=== PATIENT | female | born 1995 | race Caucasian/White ===

== ENCOUNTER 2020-11-04 22:41 | Emergency (ER) | payer OTHER, SELFPAY ==
--- NOTE | 2020-11-04 | ECG_ITS ---
Test Reason : OVERDOSED Blood Pressure : / mmHG Vent. Rate : 080 BPM Atrial Rate : 080 BPM P-R Int : 178 ms QRS Dur : 086 ms QT Int : 390 ms P-R-T Axes : 059 076 058 degrees QTc Int : 449 ms Normal sinus rhythm Normal ECG When compared to the previous EKG of No significant changes seen Referred By: Venkat Oshea Electronically Signed By:Nicolas Prabhakar
[2020-11-04 22:59] VITALS: BP 122/80; BP 132/84; PULSE 78; PULSE 85; RESP 18; TEMP 36.7; O2SAT 100; O2SAT 98; BMI 27.3
[2020-11-05] VITALS: BP 108/57; PULSE 92; RESP 18; TEMP 36.6
--- NOTE | 2020-11-05 00:17 | ED.GENADULT ---
HPI - General Adult General Chief complaint: General Medical Stated complaint: OD NAUSEA VOMITING Time Seen by Provider: 11/04/20 23:53 Source: patient Mode of arrival: ambulatory Limitations: no limitations History of Present Illness HPI narrative: Patient presents ED for accidental overdose of clonazepam. Patient states she usually takes 2 mg of clonazepam twice a day. Patient states she took 1 pill of clonazepam in the morning and then later she took 3 clonazepam because she was anxious. Patient states she also forgot she had taking 1 clonazepam earlier in the day. Patient states she was not trying to kill herself and it was accidental. Patient denies being depressed, suicidal, or homicidal. Patient states he usually takes 4 mg of clonazepam per day. Patient denies taking any other pills or drugs. Related Data Allergies Allergy/AdvReac Type Severity Reaction Status Date / Time escitalopram [From LEXAPRO] Allergy Unknown hives Verified 11/05/20 00:59 lorazepam Allergy Unknown Unknown Verified 11/05/20 00:59 Review of Systems Review of Systems: Yes all other systems are reviewed and are negative Constitutional: Constitutional: Reports as per HPI and Reports no additional constitutional complaints Eyes: Eyes: Reports as per HPI and Reports no additional eye complaints ENT: Reports system reviewed and no additional complaints, except as documented and Reports as per HPI Cardiovascular: Cardiovascular: Reports as per HPI and Reports no additional cardiovascular complaints Respiratory: Respiratory: Reports as per HPI and Reports no additional respiratory complaints Gastrointestinal: Gastrointestinal: Reports as per HPI and Reports no additional gastrointestinal complaints Genitourinary: Genitourinary: Reports no additional female genitourinary complaints and Reports as per HPI Musculoskeletal: Musculoskeletal: Reports no additional musculoskeletal complaints and Reports as per HPI Neurologic: Reports system reviewed and no additional complaints, except as documented and Reports as per HPI Psychiatric: Psychiatric: Reports no additional psychiatric complaints and Reports as per HPI [facility] Past Medical History Medical History ADD (attention deficit disorder) Anxiety Depression Social History Social History Alcohol intake: never Smoking Status: Unknown if ever smoked Use of substances other than those prescribed or required for medical reasons: No Advance Directives: No Advance Directives Information Provided: No Physical Exam Vital Signs: Vital Signs: Last Vital Signs Temp 97.7 F 11/05/20 02:00 Pulse 76 11/05/20 02:00 Resp 18 11/05/20 02:00 BP 110/61 11/05/20 02:00 Pulse Ox 98 11/05/20 02:00 Body Mass Index 27.3 Const: General: cooperative, healthy appearing, comfortable, no acute distress, well developed, alert, awake and Physically active Orientation/consciousness: patient oriented x3 HENMT: Head: Yes normal to inspection and Yes No palpable skull fracture present Eyes: General: appearance normal, both eyes and all related structures Neck: Neck: Yes normal visual inspection, Yes full ROM, Yes no lymphadenopathy, Yes no meningeal signs, Yes trachea midline, Yes supple and No tender Chest: Chest palpation & inspection: normal inspection of the chest and normal palpation of entire chest wall Resp: Effort & Inspection: normal respiratory effort and able to speak in complete sentences Auscultation: clear to auscultation bilaterally Cardio: Jugular venous distension: no JVD Heart sounds: S1 normal heart sound present and S2 normal heart sound present GI: Inspection: Yes normal to inspection Palpation (GI): Soft to palpation, not firm, nontender, no guarding and not rigid : General: No CVA tenderness and Yes no CVA tenderness Back/Spine/Pelvis: Back: no CVA tenderness, No CVA tenderness and No back tenderness Skin: General skin exam: no rashes or lesions noted and elasticity normal Neuro: General: patient oriented x3, no meningeal signs and CN's II-XI intact bilaterally Cranial nerves: Yes CN's II-XII intact bilaterally Extrem: General: Yes normal to inspection and Yes full ROM Psych: Appearance: grossly normal, well kempt and not disheveled Course Course Course Narrative: Case discussed with DR. Masters. Patient only took 2 extra pills on top of her her usual 2 pills per day. Patient is alert oriented x3. Overdose was accidental and not intentional. Labs, EKG, and poison Control not indicated. Patient already has a high tolerance for benzos. Case discussed with Dr. Masters who agrees no labs, EKG, or poison control is indicated. He recommend observing Patient in the ED. Reevaluation(s) Reevaluation #1: Patient was observed in the ED for 3 hours. Patient vital signs stable. Patient is alert oriented x3 with normal gait. Patient's family member will come and pick her up. Patient states she will follow-up with her therapist. No indication for behavior [facility] crisis evaluation Time: 02:06 Medical Decision Making MDM Narrative Medical decision making narrative: Anxiety. Accidental overdose Discharge Plan Discharge Clinical Impression: Anxiety, Accidental overdose Patient Disposition: Home, Self-Care Instructions: Anxiety (ED), Adult Overdose (ED), Benzodiazepine Overdose (ED) Additional Instructions: Return to the ED immediately for any shortness of breath, dizziness, weakness, chest pain, or any other concerning symptoms. Please follow-up with your PCP/therapist. Interventions: ED Discharge Assessment Last Done: 11/05/20 02:23 Discharge Date/Time: 11/05/20 02:23 Print Language: Australian
[2020-11-05 02:00] VITALS: BP 110/61; PULSE 76; RESP 18; TEMP 36.5; O2SAT 98
== END 2020-11-05 02:23 | disposition home or self-care (01) ==
LOC: HO.ED 11-05 02:16
PROVIDERS: Emergency Provider Emergency Medicine Emergency Medical Services
DX: T42.4X1A Poisoning by benzodiazepines, accidental (unintentional), initial encounter (principal); F33.1 Major depressive disorder, recurrent, moderate; F98.8 Other specified behavioral and emotional disorders with onset usually occurring in childhood and adolescence; R11.2 Nausea with vomiting, unspecified; Y92.009 Unspecified place in unspecified non-institutional (private) residence as the place of occurrence of the external cause; Z79.899 Other long term (current) drug therapy
CPT/HCPCS: 93005; 99283; 99284

== ENCOUNTER 2021-04-07 09:46 | Outpatient (REF) | payer OTHER, SELFPAY ==
[2021-04-07 11:09] LABS: Hematocrit 38.4 % (37-47); Hemoglobin 12.4 g/dl (12.0-16.0); Mean Corpuscular HGB Conc 32.3 g/dl (31.0-35.0); Mean Corpuscular Hemoglobin 26.5 pg (27.0-33.0); Mean Corpuscular Volume 82.1 fL (80-98); Mean Platelet Volume 10.3 fL (9.4-12.3); Platelet Count 349 X10*3/uL (160-400); Red Blood Count 4.68 X10*6/uL (4.20-5.50); Red Cell Distribution Width 14.2 % (11.0-16.0); White Blood Count 12.5 X10*3/uL (4.8-10.8)
[2021-04-07 11:44] LABS: Thyroid Stimulating Hormone 0.97 uIU/mL (0.32-4.0)
[2021-04-08 10:18] LABS: BV Int Neg Control Negative (Negative); BV Int Pos Control Positive (Positive)
[2021-04-08 11:47] LABS: CT PCR NOT DETECTED (Not Detect.); NG PCR NOT DETECTED (Not Detect.)
== END 2021-04-07 09:47 | disposition home or self-care (01) ==
LOC: HO.LAB 09:46
PROVIDERS: Visit Provider Advanced Practice Midwife
DX: Z01.411 Encounter for gynecological examination (general) (routine) with abnormal findings (principal); N92.1 Excessive and frequent menstruation with irregular cycle; L70.9 Acne, unspecified
CPT/HCPCS: 36415; 84443; 85027; 87480; 87491; 87510; 87591; 87660; 88142

== ENCOUNTER 2021-04-27 11:01 | Outpatient (REF) | payer OTHER, SELFPAY ==
--- NOTE | ~2021-04-27 | US_ITS ---
EXAMINATION: US PELVIS CLINICAL INFORMATION: Irregular menstruation. COMPARISON: None TECHNIQUE: Ultrasound of the pelvis is performed using both transabdominal and transvaginal transducers along with Doppler. Transvaginal imaging is performed due to inadequate visualization transabdominally. FINDINGS: Uterus: The uterus is anteverted and anteflexed measuring 9.2 cm in length, 4.3 cm in AP and 4.3 cm in transverse dimension. No focal lesion seen. There are echogenic calcifications in the area of previous /scar. The calcification measures 0.5 x 0.2 x 1.6 cm and were visualized previously. There are several anechoic cysts in the cervix. The double wall endometrial thickness is 0.7 mm. The uterus is smooth in contour and has normal myometrial echogenicity. No visible fibroid. Adnexa: Both ovaries are visualized. There is normal color flow to the adnexa. There is no ovarian torsion. There is no pelvic ascites or fluid collection. Right ovary measures 4.3 x 2.7 x 2.6 cm and volume 15.8 mL. There is anechoic corpus luteal cyst measuring 1.6 x 1.5 x 1.5 cm. Left ovary measures 4.0 x 1.9 x 3.0 cm and volume 11.9 mL. Previously left ovary measured 3.9 x 3.0 x 2.1 cm. There is small amount of free fluid in the cul-de-sac. US/US pelvic and transvaginal IMPRESSION: Small nabothian cysts seen in the cervix. The uterus is unremarkable except for a few scattered calcifications in the area of /scar. Small corpus luteal cyst right ovary. Small amount of free fluid in the cul-de-sac.
== END 2021-04-27 11:02 | disposition home or self-care (01) ==
LOC: HO.US 11:01
PROVIDERS: Visit Provider Advanced Practice Midwife
DX: N92.6 Irregular menstruation, unspecified (principal)
CPT/HCPCS: 76830; 76856

== ENCOUNTER → 2021-05-11 16:20 | Outpatient (BNVA) | payer OTHER, SELFPAY | PROVIDERS: Visit Provider Advanced Practice Midwife ==

== ENCOUNTER 2021-06-03 09:18 | Emergency (ER) | payer OTHER, SELFPAY ==
--- NOTE | ~2021-06-03 | CT_ITS ---
EXAMINATION: CT ANGIOGRAM OF THE CHEST WITH AND WITHOUT CONTRAST (CT PULMONARY ANGIOGRAM FOR PE) CLINICAL INFORMATION: Reason for Exam Hemoptysis. Pneumonia Vs. PE? COMPARISON: None TECHNIQUE: Prior to contrast administration, noncontrast localization images were obtained. Subsequently, multidetector volumetric imaging was performed from the thoracic inlet to below the diaphragms following the administration of 80 mL Omnipaque 350 intravenous contrast. No contrast reaction reported Sagittal, coronal, and MIP oblique sagittal reformatted images were obtained on the CT workstation, uploaded to PACS, and reviewed. This CT examination was performed using dose optimization techniques as appropriate, variously including the following: *Automated exposure control *Adjustment of mA and/or kV according to patient size (this includes techniques or standardized protocols for targeted exams where dose is matched to indication/reason for exam; i.e. extremities or head) *Use of iterative reconstruction technique Total exam dose-length product 287 mGy-cm FINDINGS: QUALITY OF STUDY/CONTRAST BOLUS: Satisfactory. PULMONARY ARTERIES: No central or segmental pulmonary emboli. THORACIC AORTA: No aneurysm or dissection. LUNG: No focal consolidation, nodules or masses. PLEURA: No pleural effusion or pneumothorax. MEDIASTINUM: Normal heart size. No pericardial effusion. No hilar or mediastinal lymphadenopathy. No evidence of septal bowing or right heart strain. CHEST WALL/AXILLA: No axillary or internal mammary lymphadenopathy. There are bilateral augmented breasts. OSSEOUS STRUCTURES: No lytic or sclerotic process seen. UPPER ABDOMEN: Visualized liver, spleen, pancreas and bilateral adrenal glands are unremarkable. No reflux of contrast into the hepatic veins to suggest elevated right heart pressures. CT/CT angio chest PE protocol IMPRESSION: No evidence of PE. No evidence of aortic dissection. The lungs are clear. VTE: Negative.
--- NOTE | ~2021-06-03 | XR_ITS ---
EXAMINATION: XR CHEST CLINICAL INFORMATION: Pneumonia COMPARISON: Chest radiograph from 11/02/2016 TECHNIQUE: Frontal view of the chest was obtained. FINDINGS: Bilateral low lung volumes. Slight accentuation of the pulmonary vasculature. Subtle patchy radiopacity in the medial right lung base may represents atelectasis versus developing infiltrate versus accentuation of vascular markings. No pneumothorax. Trachea is midline. Cardiac mediastinal silhouette is not enlarged. No large pleural effusion. Osseous structures are intact. Soft tissues are unremarkable. XR/XR chest 1V IMPRESSION: 1. Bilateral low lung volumes. 2. Slight accentuation of the pulmonary vasculature. 3. Subtle patchy radiopacity in the medial right lung base may represents atelectasis versus developing infiltrate versus accentuation of vascular markings.
[2021-06-03 09:27] VITALS: BP 130/78; PULSE 87; O2SAT 99
[2021-06-03 09:28] VITALS: BP 128/75; PULSE 77; RESP 18; TEMP 36.6; O2SAT 99; BMI 25.7
[2021-06-03] MEDS: 0.9 % Sodium Chloride 1,000 ML 999 ML IV (09:39)
[2021-06-03 09:53] LABS: MANUAL DIFF FLAG NO
[2021-06-03 09:58] LABS: Basophils Absolute Auto 0.1 X10*3/uL (0.0-0.2); Basophils Percent Auto 0.3 % (0-2); Eosinophils Absolute Auto 0.2 X10*3/uL (0.0-0.4); Eosinophils Percent Auto 1.1 % (0-4); Hematocrit 34.8 % (37-47); Imm Gran Abs Auto 0.08 X10*3/uL (0.00-0.03); Imm Gran Pct Auto 0.5 % (0.0-0.4); Lymphocytes Absolute Auto 1.6 X10*3/uL (1.2-4.9); Lymphocytes Percent Auto 9.5 % (20-40); Mean Corpuscular HGB Conc 31.6 g/dl (31.0-35.0); Mean Corpuscular Hemoglobin 25.9 pg (27.0-33.0); Mean Corpuscular Volume 82.1 fL (80-98); Mean Platelet Volume 10.6 fL (9.4-12.3); Monocytes Absolute Auto 1.3 X10*3/uL (0.1-1.2); Monocytes Percent Auto 7.6 % (2-11); Neutrophils Absolute Auto 13.7 X10*3/uL (2.0-8.3); Platelet Count 268 X10*3/uL (160-400); Red Blood Count 4.24 X10*6/uL (4.20-5.50); Red Cell Distribution Width 13.2 % (11.0-16.0); White Blood Count 16.9 X10*3/uL (4.8-10.8)
[2021-06-03 10:17] LABS: Adenovirus PCR Not Detected (Not Detect.); Bordetella parapertussis PCR Not Detected (Not Detect.); Bordetella pertussis PCR Not Detected (Not Detect.); Chlamydia pneumoniae PCR Not Detected (Not Detect.); Coronavirus 229E PCR Not Detected (Not Detect.); Coronavirus HKU1 PCR Not Detected (Not Detect.); Coronavirus NL63 PCR Not Detected (Not Detect.); Coronavirus OC43 PCR Not Detected (Not Detect.); Human metapneumovirus PCR Not Detected (Not Detect.); Influenza A PCR Not Detected (Not Detect.); Influenza B PCR Not Detected (Not Detect.); Mycoplasma pneumoniae PCR Not Detected (Not Detect.); Parainfluenza 1 PCR Not Detected (Not Detect.); Parainfluenza 2 PCR Not Detected (Not Detect.); Parainfluenza 3 PCR Not Detected (Not Detect.); Parainfluenza 4 PCR Not Detected (Not Detect.); Rhino/Enterovirus PCR Not Detected (Not Detect.); SARS-CoV-2 PCR Not Detected (Not Detect.)
--- NOTE | 2021-06-03 10:19 | ED.GENADULT ---
HPI - General Adult General Chief complaint: General Medical Stated complaint: covid symptoms Time Seen by Provider: 06/03/21 09:32 Source: patient Mode of arrival: ambulatory Limitations: no limitations History of Present Illness HPI narrative: Patient presents to the ED for coughing, nausea, vomiting, body aches, slight blood in cough, and fever of 101.8 at home. Patient denies any dysuria, hematuria, recent trauma, headache, dizziness, or neck stiffness. Patient states she had symptoms when she went to visit her doctor but got worse after receiving the flu shot. Patient had white blood cell count [id number] and lab work done by PCP so they call in to be evaluated in the ER. Patient states she is vaccinated against COVID-19 and has no past medical history. Related Data Home Medications Medication Instructions Recorded Confirmed clonazepam 2 mg tablet (Klonopin) 2 mg PO DAILY 04/07/21 fluoxetine 20 mg capsule 20 mg PO DAILY 04/07/21 lorazepam 1 mg tablet 1 mg PO DAILY PRN 04/07/21 spironolactone 25 mg tablet 25 mg PO DAILY 04/07/21 Allergies Allergy/AdvReac Type Severity Reaction Status Date / Time escitalopram [From LEXAPRO] Allergy Unknown hives Verified 05/11/21 16:21 Review of Systems Review of Systems: Yes all other systems are reviewed and are negative Constitutional: Constitutional: Reports as per HPI, Reports no additional constitutional complaints, Reports body ache(s) and Reports fever(s) Eyes: Eyes: Reports as per HPI and Reports no additional eye complaints ENT: Reports system reviewed and no additional complaints, except as documented and Reports as per HPI Cardiovascular: Cardiovascular: Reports as per HPI and Reports no additional cardiovascular complaints Respiratory: Respiratory: Reports as per HPI, Reports no additional respiratory complaints, Reports cough, Reports hemoptysis (small) and Reports pain with cough Gastrointestinal: Gastrointestinal: Reports as per HPI, Reports no additional gastrointestinal complaints, Reports nausea and Reports vomiting Genitourinary: Genitourinary: Reports no additional female genitourinary complaints and Reports as per HPI Musculoskeletal: Musculoskeletal: Reports no additional musculoskeletal complaints and Reports as per HPI Neurologic: Reports system reviewed and no additional complaints, except as documented and Reports as per HPI Psychiatric: Psychiatric: Reports no additional psychiatric complaints and Reports as per HPI [facility] Past Medical History Medical History ADD (attention deficit disorder) Anxiety Depression Surgical History Hx of breast augmentation Hx of tubal ligation Social History Social History Alcohol intake: current Alcohol intake frequency: does not drink Patient Tobacco Use Status: Never used Tobacco Use of substances other than those prescribed or required for medical reasons: No Advance Directives: Yes Advance Directives Information Provided: Yes Advance Directives on File: No Physical Exam Vital Signs: Vital Signs: Last Vital Signs Temp 98.2 F 06/03/21 10:51 Pulse 80 06/03/21 10:51 Resp 17 06/03/21 10:51 BP 111/68 06/03/21 10:51 Pulse Ox 100 06/03/21 10:51 Body Mass Index 25.7 Const: General: cooperative, healthy appearing, comfortable, no acute distress, well developed, alert, awake and Physically active Orientation/consciousness: patient oriented x3 HENMT: Head: Yes normal to inspection, Yes No palpable skull fracture present, Yes normocephalic and Yes atraumatic Throat: Yes posterior oropharynx normal, Yes tonsils normal and Yes uvula midline Eyes: General: appearance normal, both eyes and all related structures Neck: Neck: Yes normal visual inspection, Yes full ROM, Yes no lymphadenopathy, Yes no meningeal signs, Yes trachea midline, Yes supple and No tender Chest: Chest palpation & inspection: normal inspection of the chest and normal palpation of entire chest wall Resp: Effort & Inspection: normal respiratory effort and able to speak in complete sentences Auscultation: clear to auscultation bilaterally Cardio: Jugular venous distension: no JVD Heart sounds: S1 normal heart sound present and S2 normal heart sound present GI: Inspection: Yes normal to inspection and No abdominal wall ecchymosis Palpation (GI): Soft to palpation, not firm, nontender, no guarding and not rigid : General: No CVA tenderness and Yes no CVA tenderness Back/Spine/Pelvis: Back: no CVA tenderness, No CVA tenderness and No back tenderness Skin: General skin exam: no rashes or lesions noted and elasticity normal Neuro: General: patient oriented x3, no meningeal signs and CN's II-XI intact bilaterally Cranial nerves: Yes CN's II-XII intact bilaterally Extrem: General: Yes normal to inspection and Yes full ROM Psych: Appearance: grossly normal, well kempt and not disheveled Course Course Course Narrative: Patient had labs ordered, COVID swab, chest x-ray. Reevaluation(s) Reevaluation #1: Patient Elavil and blood cell count with x-ray stating possible pneumonia. Was sent for chest CT to rule out PE versus pneumonia due to patient having hemoptysis 1 episode. Lungs are clear. Patient is not toxic appearing. Vital signs are stable. No need for lactic acid. Time: 09:47 Reevaluation #2: Upon review of labs RSV came back positive. Chest CT came back negative for pneumonia or PE. Patient educated on oral hydration and Tylenol Motrin for fever and pain relief. Time: 13:30 Medical Decision Making [facility] Narrative Medical decision making narrative: RSV Lab Data Result diagrams: 06/03/21 09:47 06/03/21 09:47 Labs: Lab Results 06/03/21 06/03/21 06/03/21 Range/Units 09:47 09:47 09:47 WBC 16.9 H (4.8-10.8) X10*3/uL RBC 4.24 (4.20-5.50) X10*6/uL Hgb 11.0 L (12.0-16.0) g/dl Hct 34.8 L (37-47) % MCV 82.1 (80-98) fL MCH 25.9 L (27.0-33.0) pg MCHC 31.6 (31.0-35.0) g/dl RDW 13.2 (11.0-16.0) % Plt Count 268 (160-400) X10*3/uL MPV 10.6 (9.4-12.3) fL Immature Gran % (Auto) 0.5 H (0.0-0.4) % Neut % (Auto) 81.0 H (45-73) % Lymph % (Auto) 9.5 L (20-40) % Marshall % (Auto) 7.6 (2-11) % Eos % (Auto) 1.1 (0-4) % Baso % (Auto) 0.3 (0-2) % Lymph # (Auto) 1.6 (1.2-4.9) X10*3/uL Marshall # (Auto) 1.3 H (0.1-1.2) X10*3/uL Eos # (Auto) 0.2 (0.0-0.4) X10*3/uL Baso # (Auto) 0.1 (0.0-0.2) X10*3/uL Abs Immat Gran (auto) 0.08 H (0.00-0.03) X10*3/uL Absolute Neuts (auto) 13.7 H (2.0-8.3) X10*3/uL Absolute Nucleated RBC 0.000 (0.0-0.012) X10*3/uL Nucleated RBC % (auto) 0.0 (0.0-0.2) /100WBC PT 11.2 (9.9-13.0) SEC INR 1.0 (0.9-1.1) APTT 24.3 (24.1-38.0) SEC Sodium 138 (135-145) mmol/L Potassium 4.0 (3.3-5.1) mmol/L Chloride 107 (96-108) mmol/L Carbon Dioxide 25 (22-29) mmol/L Anion Gap 10 L (12-20) BUN 7 L (9-16) mg/dL Creatinine 0.65 (0.5-1.4) mg/dL Estim Creat Clear Calc 117.5 Estimated GFR > 60 Random Glucose 93 (60-115) mg/dL Calcium 8.9 (8.4-10.2) mg/dL Ferritin 39 (10-122) ng/mL Total Bilirubin 0.3 (0.0-1.0) mg/dL AST 19 (5-31) U/L ALT 31 (0-31) U/L Alkaline Phosphatase 62 (39-117) U/L Lactate Dehydrogenase 151 (122-220) U/L Total Protein 6.7 (6.5-8.0) g/dL Albumin 4.0 (3.5-5.0) g/dL Lipase 17 (8-78) U/L Procalcitonin ng/mL Beta HCG, Quant < 2 mIU/mL Respiratory Panel Messer Adenovirus (Rapid PCR) (Not Detect.) B.pert (TEM-PCR) (Not Detect.) B.parapertussis DNA PCR (Not Detect.) C. pneumoniae DNA (PCR) (Not Detect.) Coronavirus (PCR) (Negative) Coronavirus OC43 (PCR) (Not Detect.) Coronavirus HKU1 (PCR) (Not Detect.) Coronavirus 229E (PCR) (Not Detect.) Coronavirus NL63 (PCR) (Not Detect.) Human Metapneumovir PCR (Not Detect.) Influenza A (RT-PCR) (Not Detect.) Influenza Type A (PCR) (Negative) Influenza B (RT-PCR) (Not Detect.) Influenza Type B (PCR) (Negative) M. pneumoniae (PCR) (Not Detect.) Parainfluenza 1 (PCR) (Not Detect.) Parainfluenza 2 (PCR) (Not Detect.) Parainfluenza 3 (PCR) (Not Detect.) Parainfluenza 4 (PCR) (Not Detect.) RSV (PCR) (Not Detect.) RSV RNA Qual (PCR) (Negative) Entero/Rhino (PCR) (Not Detect.) SARS-CoV-2 RNA (RT-PCR) (Not Detect.) 06/03/21 06/03/21 06/03/21 Range/Units 09:47 09:47 09:47 WBC (4.8-10.8) X10*3/uL RBC (4.20-5.50) X10*6/uL Hgb (12.0-16.0) g/dl Hct (37-47) % MCV (80-98) fL MCH (27.0-33.0) pg MCHC (31.0-35.0) g/dl RDW (11.0-16.0) % Plt Count (160-400) X10*3/uL MPV (9.4-12.3) fL Immature Gran % (Auto) (0.0-0.4) % Neut % (Auto) (45-73) % Lymph % (Auto) (20-40) % Marshall % (Auto) (2-11) % Eos % (Auto) (0-4) % Baso % (Auto) (0-2) % Lymph # (Auto) (1.2-4.9) X10*3/uL Marshall # (Auto) (0.1-1.2) X10*3/uL Eos # (Auto) (0.0-0.4) X10*3/uL Baso # (Auto) (0.0-0.2) X10*3/uL Abs Immat Gran (auto) (0.00-0.03) X10*3/uL Absolute Neuts (auto) (2.0-8.3) X10*3/uL Absolute Nucleated RBC (0.0-0.012) X10*3/uL Nucleated RBC % (auto) (0.0-0.2) /100WBC PT (9.9-13.0) SEC INR (0.9-1.1) APTT (24.1-38.0) SEC Sodium (135-145) mmol/L Potassium (3.3-5.1) mmol/L Chloride (96-108) mmol/L Carbon Dioxide (22-29) mmol/L Anion Gap (12-20) BUN (9-16) mg/dL Creatinine (0.5-1.4) mg/dL Estim Creat Clear Calc Estimated GFR Random Glucose (60-115) mg/dL Calcium (8.4-10.2) mg/dL Ferritin (10-122) ng/mL Total Bilirubin (0.0-1.0) mg/dL AST (5-31) U/L ALT (0-31) U/L Alkaline Phosphatase (39-117) U/L Lactate Dehydrogenase (122-220) U/L Total Protein (6.5-8.0) g/dL Albumin (3.5-5.0) g/dL Lipase (8-78) U/L Procalcitonin 0.03 ng/mL Beta HCG, Quant mIU/mL Respiratory Panel Messer See Note Adenovirus (Rapid PCR) Not Detected (Not Detect.) B.pert (TEM-PCR) Not Detected (Not Detect.) B.parapertussis DNA PCR Not Detected (Not Detect.) C. pneumoniae DNA (PCR) Not Detected (Not Detect.) Coronavirus (PCR) NEGATIVE (Negative) Coronavirus OC43 (PCR) Not Detected (Not Detect.) Coronavirus HKU1 (PCR) Not Detected (Not Detect.) Coronavirus 229E (PCR) Not Detected (Not Detect.) Coronavirus NL63 (PCR) Not Detected (Not Detect.) Human Metapneumovir PCR Not Detected (Not Detect.) Influenza A (RT-PCR) Not Detected (Not Detect.) Influenza Type A (PCR) NEGATIVE (Negative) Influenza B (RT-PCR) Not Detected (Not Detect.) Influenza Type B (PCR) NEGATIVE (Negative) M. pneumoniae (PCR) Not Detected (Not Detect.) Parainfluenza 1 (PCR) Not Detected (Not Detect.) Parainfluenza 2 (PCR) Not Detected (Not Detect.) Parainfluenza 3 (PCR) Not Detected (Not Detect.) Parainfluenza 4 (PCR) Not Detected (Not Detect.) RSV (PCR) Detected A (Not Detect.) RSV RNA Qual (PCR) NEGATIVE (Negative) Entero/Rhino (PCR) Not Detected (Not Detect.) SARS-CoV-2 RNA (RT-PCR) Not Detected (Not Detect.) Discharge Plan Discharge Clinical Impression: Respiratory syncytial virus (RSV) Patient Disposition: Home, Self-Care Instructions: Respiratory Syncytial Virus (ED) Additional Instructions: Your chest CT came back negative for blood clot or pneumonia. COVID swab came back negative. Flu swab came back negative. UA came back positive for RSV. No antibiotics indicated. Recommend oral hydration and Motrin/Tylenol for pain/fever relief. Return to the ED immediately for any chest pain, shortness of breath, weakness, dizziness, calf pain, or any other concerning symptoms. Prescriptions: No Action fluoxetine 20 mg capsule 20 mg PO DAILY RF: 0 clonazepam [Klonopin] 2 mg tablet 2 mg PO DAILY RF: 0 lorazepam 1 mg tablet 1 mg PO DAILY PRNRF: 0 spironolactone 25 mg tablet 25 mg PO DAILY RF: 0 Stand Alone Forms: Work/School Release Interventions: ED Discharge Assessment Last Done: 06/03/21 14:26 Discharge Date/Time: 06/03/21 14:27 Print Language: Chinese
[2021-06-03 10:26] LABS: Alanine Aminotransferase 31 U/L (0-31); Alkaline Phosphatase 62 U/L (39-117); Anion Gap 10 (12-20); Aspartate Amino Transferase 19 U/L (5-31); Bilirubin Total 0.3 mg/dL (0.0-1.0); Blood Urea Nitrogen 7 mg/dL (9-16); Calcium 8.9 mg/dL (8.4-10.2); Carbon Dioxide 25 mmol/L (22-29); Chloride 107 mmol/L (96-108); Creatinine Clr Calc Pharmacy 117.5; Estimated Glomerular Filt Rate > 60; Glucose Random 93 mg/dL (60-115); Lactate Dehydrogenase 151 U/L (122-220); Sodium 138 mmol/L (135-145); Total Protein 6.7 g/dL (6.5-8.0)
[2021-06-03 10:38] LABS: Prothrombin Time 11.2 SEC (9.9-13.0)
[2021-06-03 10:40] LABS: Influenza A PCR NEGATIVE (Negative); Influenza B PCR NEGATIVE (Negative); Partial Thromboplastin Time 24.3 SEC (24.1-38.0); Resp Syncy Virus RNA Qual PCR NEGATIVE (Negative); SARS COV2 PCR INHOUSE NEGATIVE (Negative)
[2021-06-03 10:48] LABS: Ferritin 39 ng/mL (10-122)
[2021-06-03 10:51] VITALS: BP 111/68; PULSE 80; RESP 17; TEMP 36.8; O2SAT 100
[2021-06-03] MEDS: Ketorolac Tromethamine 15 MG/ML VIAL 30 MG IVPUSH (10:52)
[2021-06-03] MEDS: ondansetron HCL 4 MG/2 ML VIAL IVPUSH (10:53)
[2021-06-03 11:10] LABS: Procalcitonin 0.03 ng/mL
[2021-06-03 11:22] LABS: Lipase 17 U/L (8-78)
[2021-06-03 11:36] LABS: HCG Quantitative < 2 mIU/mL
[2021-06-03 12:32] LABS: RSV PCR Detected (Not Detect.)
[2021-06-03] MEDS: iohexoL 350 MG/ML 100 ML INFUS..BTL 85 ML IV (12:37)
== END 2021-06-03 14:27 | disposition home or self-care (01) ==
PROVIDERS: Physician Assistant; Emergency Provider Emergency Medicine
DX: J22 Unspecified acute lower respiratory infection (principal); M79.10 Myalgia, unspecified site; R05 Cough; R50.9 Fever, unspecified; Z20.822 Contact with and (suspected) exposure to COVID-19; Z79.899 Other long term (current) drug therapy
CPT/HCPCS: 0241U; 36415; 71045; 71275; 80053; 82728; 83615; 83690; 84145; 84702; 85025; 85610; 85730; 87633; 96361; 96374; 96375; 99284; J1885; J2405; Q9967

== ENCOUNTER 2021-08-26 13:23 | Outpatient (REF) | payer OTHER, SELFPAY ==
[2021-08-26 15:00] LABS: Hematocrit 41.7 % (37.0-47.0); Hemoglobin 13.1 g/dl (12.0-16.0); Mean Corpuscular HGB Conc 31.4 g/dl (31.0-35.0); Mean Corpuscular Hemoglobin 25.3 pg (27.0-33.0); Mean Corpuscular Volume 80.7 fL (80.0-98.0); Mean Platelet Volume 9.7 fL (9.4-12.3); Platelet Count 301 X10*3/uL (160-400); Red Blood Count 5.17 X10*6/uL (4.20-5.50); Red Cell Distribution Width 13.9 % (11.0-16.0)
[2021-08-26 15:43] LABS: Thyroid Stimulating Hormone 0.92 uIU/mL (0.32-4.0)
[2021-08-27 04:27] LABS: CT PCR NOT DETECTED (Not Detect.); NG PCR NOT DETECTED (Not Detect.)
[2021-08-27 13:46] LABS: Prolactin 6.9 ng/mL
[2021-08-27 14:55] LABS: BV Int Neg Control Negative (Negative); BV Int Pos Control Positive (Positive)
[2021-08-29 17:12] LABS: DHEA Sulfate 377 mcg/dL (18-391)
== END 2021-08-26 13:24 | disposition home or self-care (01) ==
LOC: HO.LAB 13:23
PROVIDERS: Visit Provider Advanced Practice Midwife
DX: Z71.2 Person consulting for explanation of examination or test findings (principal); N92.6 Irregular menstruation, unspecified; Z20.2 Contact with and (suspected) exposure to infections with a predominantly sexual mode of transmission
CPT/HCPCS: 36415; 81025; 82627; 83498; 84146; 84443; 85027; 87480; 87491; 87510; 87591; 87660; 99212

== ENCOUNTER → 2021-09-13 10:49 | Outpatient (BNVA) | payer OTHER, SELFPAY | PROVIDERS: Visit Provider Advanced Practice Midwife ==

== ENCOUNTER 2021-10-09 20:39 | Emergency (ER) | payer OTHER, SELFPAY ==
--- NOTE | 2021-10-09 | ECG_ITS ---
Test Reason : chest pain Blood Pressure : / mmHG Vent. Rate : 080 BPM Atrial Rate : 080 BPM P-R Int : 174 ms QRS Dur : 084 ms QT Int : 394 ms P-R-T Axes : 038 036 045 degrees QTc Int : 454 ms Normal sinus rhythm Normal ECG When compared with ECG of 04-NOV-2020 22:50, No significant change was found Referred By: Generic ED Physician Electronically Signed By:VENKATESH SOTELO MD
--- NOTE | ~2021-10-09 | CT_ITS ---
EXAMINATION: CT ANGIOGRAM OF THE CHEST WITH AND WITHOUT CONTRAST (CT PULMONARY ANGIOGRAM FOR PE) CLINICAL INFORMATION: Reason for Exam sob , cp s/p lap surgery ?PE COMPARISON: 06/03/2021 TECHNIQUE: Prior to contrast administration, noncontrast localization images were obtained. Subsequently, multidetector volumetric imaging was performed from the thoracic inlet to below the diaphragms following the administration of 65 mL Omnipaque 350 intravenous contrast. No contrast reaction reported Sagittal, coronal, and MIP oblique sagittal reformatted images were obtained on the CT workstation, uploaded to PACS, and reviewed. This CT examination was performed using dose optimization techniques as appropriate, variously including the following: *Automated exposure control *Adjustment of mA and/or kV according to patient size (this includes techniques or standardized protocols for targeted exams where dose is matched to indication/reason for exam; i.e. extremities or head) *Use of iterative reconstruction technique Total exam dose-length product 285 mGy-cm FINDINGS: QUALITY OF STUDY/CONTRAST BOLUS: Satisfactory. PULMONARY ARTERIES: No central or segmental pulmonary emboli. THORACIC AORTA: No aneurysm or dissection. LUNG: No focal consolidation, nodules or masses. The central airways are patent. PLEURA: No pleural effusion or pneumothorax. MEDIASTINUM: Normal heart size. No pericardial effusion. No hilar or mediastinal lymphadenopathy. No evidence of septal bowing or right heart strain. CHEST WALL/AXILLA: No axillary or internal mammary lymphadenopathy. Bilateral breast implants. OSSEOUS STRUCTURES: No acute or suspicious osseous abnormality. UPPER ABDOMEN: Unremarkable. No reflux of contrast into the hepatic veins to suggest elevated right heart pressures. CT/CT angio chest PE protocol IMPRESSION: No pulmonary embolism or other acute intrathoracic abnormality. VTE: negative
[2021-10-09 20:50] VITALS: BP 111/63; PULSE 76; RESP 24; TEMP 36.7; O2SAT 98; BMI 25.7
--- NOTE | 2021-10-09 21:10 | ED_ITS ---
HPI - Chest Pain General Chief Complaint: Chest Pain Stated Complaint: Anxiety Time Seen by Provider: 10/09/21 21:10 Source: patient Mode of arrival: EMS Limitations: no limitations History of Present Illness HPI narrative: Patient with history of anxiety started feeling anxious with chest pain feeling nauseated lightheaded 1 hour prior to arrival to the 0.5 mg of Ativan still feel anxious patient had lap surgery done 2 weeks ago no history of asthma or cardiac issues before had similar episode of chest pain when she gets anxious was feeling slight short of breath also no leg swelling Related Data Home Medications Medication Instructions Recorded Confirmed clonazepam 2 mg tablet (Klonopin) 2 mg PO DAILY 04/07/21 fluoxetine 20 mg capsule 20 mg PO DAILY 04/07/21 lorazepam 1 mg tablet 1 mg PO DAILY PRN 04/07/21 spironolactone 25 mg tablet 25 mg PO DAILY 04/07/21 Allergies Allergy/AdvReac Type Severity Reaction Status Date / Time escitalopram [From LEXAPRO] Allergy Unknown hives Verified 09/13/21 10:50 Review of Systems Review of Systems: Yes all other systems are reviewed and are negative [facility] Past Medical History Medical History ADD (attention deficit disorder) Anxiety Depression Surgical History Hx of breast augmentation Hx of tubal ligation Social History Social History Alcohol intake: current Alcohol intake frequency: does not drink Patient Tobacco Use Status: Never used Tobacco Advance Directives: No Physical Exam Vital Signs: Vital Signs: Last Vital Signs Temp 98.8 F 10/09/21 21:58 Pulse 91 10/09/21 21:58 Resp 15 10/09/21 21:58 BP 126/71 10/09/21 21:58 Pulse Ox 99 10/09/21 21:58 BMI result Body Mass Index 25.7 Appearance: Alert. Oriented X3. No acute distress. Anxious Eyes: No pallor/ icterus ENT: Pharynx normal. Oral Mucosa moist Neck: Normal inspection. Neck supple. CVS: Normal heart rate and rhythm. Pulses normal. Respiratory: No respiratory distress. Equal air entry bilateral, no wheezing/rales/rhonchi Abdomen: Soft and nontender. Bowel sounds are present, no mass palpable Skin: Skin warm and dry. Normal skin color. Normal skin turgor. Extremities: No lower extremity edema. No calf tenderness Neuro: Oriented X 3. MDM - Chest Pain MDM Narrative Medical decision making narrative: Patient labs are stable recent lap surgery D-dimer slightly elevated patient does have history of anxiety likely the cause of shortness of breath at this time patient is feeling much better after Ativan IV saturating 99% at room air better but as D-dimer is elevated will do CTA chest to rule out PE 1 am CTA chest negative for PE patient feeling much better now discharge patient home likely chest pain secondary to anxiety Lab Data Attestation: I reviewed the patient's lab results. Result diagrams: 10/09/21 21:09 10/09/21 21:09 Labs: Lab Results 10/09/21 10/09/21 10/09/21 Range/Units 21:09 21:09 21:09 WBC 10.9 H (4.8-10.8) X10*3/uL RBC 3.83 L D (4.20-5.50) X10*6/uL Hgb 10.3 L D (12.0-16.0) g/dl Hct 30.9 L D (37.0-47.0) % MCV 80.7 (80.0-98.0) fL MCH 26.9 L (27.0-33.0) pg MCHC 33.3 (31.0-35.0) g/dl RDW 13.7 (11.0-16.0) % Plt Count 323 (160-400) X10*3/uL MPV 9.3 L (9.4-12.3) fL Immature Gran % (Auto) 0.2 (0.0-0.4) % Neut % (Auto) 68.6 (45-73) % Lymph % (Auto) 21.4 (20-40) % Dickson % (Auto) 8.5 (2-11) % Eos % (Auto) 1.1 (0-4) % Baso % (Auto) 0.2 (0-2) % Lymph # (Auto) 2.3 (1.2-4.9) X10*3/uL Dickson # (Auto) 0.9 (0.1-1.2) X10*3/uL Eos # (Auto) 0.1 (0.0-0.4) X10*3/uL Baso # (Auto) 0.0 (0.0-0.2) X10*3/uL Abs Immat Gran (auto) 0.02 (0.00-0.03) X10*3/uL Absolute Neuts (auto) 7.5 (2.0-8.3) x10*3/uL Absolute Nucleated RBC 0.000 (0.0-0.012) X10*3/uL Nucleated RBC % (auto) 0.0 (0.0-0.2) /100WBC D-Dimer High Sensitivty NG/ML Sodium 140 (135-145) mmol/L Potassium 3.6 (3.3-5.1) mmol/L Chloride 106 (96-108) mmol/L Carbon Dioxide 25 (22-29) mmol/L Anion Gap 13 (12-20) BUN 12 (9-16) mg/dL Creatinine 0.73 (0.5-1.4) mg/dL Estim Creat Clear Calc 104.6 Estimated GFR > 60 Random Glucose 111 (60-115) mg/dL Calcium 10.0 D (8.4-10.2) mg/dL Troponin I High Sens < 3.5 (<3.5-17.0) ng/L Urine Test (NEGATIVE) COVID-19 ([facility]) (Negative) COVID-19 Clin Com 10/09/21 10/09/21 10/09/21 Range/Units 21:09 21:09 22:43 WBC (4.8-10.8) X10*3/uL RBC (4.20-5.50) X10*6/uL Hgb (12.0-16.0) g/dl Hct (37.0-47.0) % MCV (80.0-98.0) fL MCH (27.0-33.0) pg MCHC (31.0-35.0) g/dl RDW (11.0-16.0) % Plt Count (160-400) X10*3/uL MPV (9.4-12.3) fL Immature Gran % (Auto) (0.0-0.4) % Neut % (Auto) (45-73) % Lymph % (Auto) (20-40) % Dickson % (Auto) (2-11) % Eos % (Auto) (0-4) % Baso % (Auto) (0-2) % Lymph # (Auto) (1.2-4.9) X10*3/uL Dickson # (Auto) (0.1-1.2) X10*3/uL Eos # (Auto) (0.0-0.4) X10*3/uL Baso # (Auto) (0.0-0.2) X10*3/uL Abs Immat Gran (auto) (0.00-0.03) X10*3/uL Absolute Neuts (auto) (2.0-8.3) x10*3/uL Absolute Nucleated RBC (0.0-0.012) X10*3/uL Nucleated RBC % (auto) (0.0-0.2) /100WBC D-Dimer High Sensitivty 313 NG/ML Sodium (135-145) mmol/L Potassium (3.3-5.1) mmol/L Chloride (96-108) mmol/L Carbon Dioxide (22-29) mmol/L Anion Gap (12-20) BUN (9-16) mg/dL Creatinine (0.5-1.4) mg/dL Estim Creat Clear Calc Estimated GFR Random Glucose (60-115) mg/dL Calcium (8.4-10.2) mg/dL Troponin I High Sens (<3.5-17.0) ng/L Urine Test NEGATIVE (NEGATIVE) COVID-19 ([facility]) Negative (Negative) COVID-19 Clin Com See Note Discharge Plan Discharge Clinical Impression: Anxiety Chest pain Qualifiers: Chest pain type: precordial pain Qualified Code(s): R07.2 - Precordial pain Patient Disposition: Home, Self-Care Instructions: Noncardiac Chest Pain (ED), Anxiety (ED) Additional Instructions: Continue anxiety medication as prescribed and follow with PCP Prescriptions: No Action fluoxetine 20 mg capsule 20 mg PO DAILY RF: 0 clonazepam [Klonopin] 2 mg tablet 2 mg PO DAILY RF: 0 lorazepam 1 mg tablet 1 mg PO DAILY PRNRF: 0 spironolactone 25 mg tablet 25 mg PO DAILY RF: 0 Interventions: ED Discharge Assessment Last Done: 10/10/21 01:06
[2021-10-09 21:17] LABS: MANUAL DIFF FLAG NO
[2021-10-09 21:18] LABS: Basophils Percent Auto 0.2 % (0-2); Eosinophils Absolute Auto 0.1 X10*3/uL (0.0-0.4); Eosinophils Percent Auto 1.1 % (0-4); Hematocrit 30.9 % (37.0-47.0); Hemoglobin 10.3 g/dl (12.0-16.0); Imm Gran Abs Auto 0.02 X10*3/uL (0.00-0.03); Imm Gran Pct Auto 0.2 % (0.0-0.4); Lymphocytes Absolute Auto 2.3 X10*3/uL (1.2-4.9); Lymphocytes Percent Auto 21.4 % (20-40); Mean Corpuscular HGB Conc 33.3 g/dl (31.0-35.0); Mean Corpuscular Hemoglobin 26.9 pg (27.0-33.0); Mean Corpuscular Volume 80.7 fL (80.0-98.0); Mean Platelet Volume 9.3 fL (9.4-12.3); Monocytes Absolute Auto 0.9 X10*3/uL (0.1-1.2); Monocytes Percent Auto 8.5 % (2-11); Neutrophils Absolute Auto 7.5 x10*3/uL (2.0-8.3); Neutrophils Percent Auto 68.6 % (45-73); Platelet Count 323 X10*3/uL (160-400); Red Blood Count 3.83 X10*6/uL (4.20-5.50); Red Cell Distribution Width 13.7 % (11.0-16.0); White Blood Count 10.9 X10*3/uL (4.8-10.8)
[2021-10-09 21:25] LABS: D Dimer High Sensitivity 313 NG/ML
[2021-10-09 21:32] LABS: COVID-19 Test Negative (Negative)
[2021-10-09] MEDS: LORazepam 2 MG/ML VIAL 1 MG IVPUSH (21:33)
[2021-10-09 21:37] LABS: Troponin-I High Sensitivity < 3.5 ng/L (<3.5-17.0)
[2021-10-09 21:40] LABS: Anion Gap 13 (12-20); Blood Urea Nitrogen 12 mg/dL (9-16); Carbon Dioxide 25 mmol/L (22-29); Chloride 106 mmol/L (96-108); Creatinine Clr Calc Pharmacy 104.6; Estimated Glomerular Filt Rate > 60; Glucose Random 111 mg/dL (60-115); Potassium 3.6 mmol/L (3.3-5.1); Sodium 140 mmol/L (135-145)
[2021-10-09 21:58] VITALS: BP 126/71; PULSE 91; RESP 15; TEMP 37.1; O2SAT 99
[2021-10-09 22:49] LABS: UPreg QC Valid YES; Urine Pregnancy NEGATIVE (NEGATIVE)
[2021-10-10] MEDS: iohexoL 350 MG/ML 100 ML INFUS..BTL 65 ML IV (00:02)
== END 2021-10-10 01:17 | disposition home or self-care (01) ==
PROVIDERS: Emergency Provider Internal Medicine
DX: R07.89 Other chest pain (principal); F41.9 Anxiety disorder, unspecified; Z79.899 Other long term (current) drug therapy; Z20.822 Contact with and (suspected) exposure to COVID-19
CPT/HCPCS: 36415; 71275; 80048; 81025; 84484; 85025; 85379; 87635; 93005; 96374; 99284; J2060; Q9967

== ENCOUNTER 2021-12-13 09:31 | Emergency (ER) | payer OTHER, SELFPAY ==
[2021-12-13 10:16] VITALS: BP 128/77; PULSE 94; RESP 18; TEMP 36.7; O2SAT 99; BMI 21.2
--- NOTE | 2021-12-13 12:49 | ECG_ITS ---
Test Reason : DIZZNESS Blood Pressure : / mmHG Vent. Rate : 075 BPM Atrial Rate : 075 BPM P-R Int : 174 ms QRS Dur : 084 ms QT Int : 386 ms P-R-T Axes : 038 039 033 degrees QTc Int : 431 ms Normal sinus rhythm Normal ECG When compared with ECG of 09-OCT-2021 20:58, No significant change was found Referred By: Autumn Bob Electronically Signed By:ALEXANDRE CONNOR
[2021-12-13 13:04] VITALS: BP 114/76; BP 119/61; PULSE 76; PULSE 81; PULSE 87
[2021-12-13] MEDS: LORazepam 1 MG TABLET PO (13:13)
[2021-12-13] MEDS: Acetaminophen 325 MG TABLET 975 MG PO (13:14)
[2021-12-13] MEDS: Ibuprofen 600 MG TABLET PO (13:14)
[2021-12-13 13:17] LABS: MANUAL DIFF FLAG NO
[2021-12-13 13:18] LABS: Basophils Percent Auto 0.4 % (0-2); Eosinophils Absolute Auto 0.1 X10*3/uL (0.0-0.4); Eosinophils Percent Auto 1.3 % (0-4); Hematocrit 42.2 % (37.0-47.0); Hemoglobin 13.2 g/dl (12.0-16.0); Imm Gran Abs Auto 0.02 X10*3/uL (0.00-0.03); Imm Gran Pct Auto 0.2 % (0.0-0.4); Lymphocytes Absolute Auto 2.5 X10*3/uL (1.2-4.9); Lymphocytes Percent Auto 26.7 % (20-40); Mean Corpuscular HGB Conc 31.3 g/dl (31.0-35.0); Mean Corpuscular Hemoglobin 25.6 pg (27.0-33.0); Mean Corpuscular Volume 81.8 fL (80.0-98.0); Mean Platelet Volume 10.2 fL (9.4-12.3); Monocytes Absolute Auto 0.8 X10*3/uL (0.1-1.2); Monocytes Percent Auto 8.7 % (2-11); Neutrophils Absolute Auto 5.8 x10*3/uL (2.0-8.3); Neutrophils Percent Auto 62.7 % (45-73); Platelet Count 333 X10*3/uL (160-400); Red Blood Count 5.16 X10*6/uL (4.20-5.50); Red Cell Distribution Width 13.2 % (11.0-16.0); White Blood Count 9.3 X10*3/uL (4.8-10.8)
--- NOTE | 2021-12-13 13:30 | ED_ITS ---
HPI - Headache General Chief Complaint: Anxiety Stated Complaint: cjest pains/headaches Time Seen by Provider: 12/13/21 11:47 Source: patient Mode of arrival: ambulatory Limitations: no limitations History of Present Illness HPI Narrative: Patient is a 26-year-old female with a past medical history of anxiety and d epression. She states that she has not been taking or fluoxetine/clonazepam/lorazepam for a few months as she is no longer being followed by her psychiatric med prescriber. She has been attempting to contact [facility] to establish care has been unable to schedule a new patient appointment for the past 2 months. She presents emergency department today because she reports upon awakening this morning she was experiencing a diffuse headache and dizziness. The dizziness was made worse with position changing, and walking but feels better with rest. She in addition is experiencing chest pressure. She does feel that the chest pressure is consistent with her feelings of past panic attacks, she did become very anxious about the fact that she was having a headache and dizziness. She denies fevers, chills, neck pain, rhinorrhea, sore throat, vision changes, cough, shortness of breath, difficulty breathing, dyspnea on exertion, palpitations, nausea, vomiting, abdominal pain, dysuria, urinary frequency, generalized weakness. Related Data Home Medications Medication Instructions Recorded Confirmed clonazepam 2 mg tablet (Klonopin) 2 mg PO DAILY 04/07/21 fluoxetine 20 mg capsule 20 mg PO DAILY 04/07/21 lorazepam 1 mg tablet 1 mg PO DAILY PRN 04/07/21 spironolactone 25 mg tablet 25 mg PO DAILY 04/07/21 Allergies Allergy/AdvReac Type Severity Reaction Status Date / Time escitalopram [From LEXAPRO] Allergy Unknown hives Verified 09/13/21 10:50 Review of Systems Review of Systems: Constitutional : No Fever, No Chills, No Fatigue ENT/Mouth : No sore throat, No Rhinorrhea Eyes: No Eye Pain, No Swelling, No Redness, no Tinnitus Cardiovascular : Chest pressure, No SOB, No Dyspnea on Exertion Respiratory : No Cough, No Sputum Gastrointestinal : No Nausea, No Vomiting, No Diarrhea, No abdominal Pain Genitourinary : No Dysuria, No Urinary Frequency, No Hematuria, Musculoskeletal : No joint pain, No Myalgias, No Joint Swelling Skin : No Skin Lesions, No rash Neuro : No Weakness, No Numbness, positive Dizziness, positive Headache Psych : No Anxiety/Panic, No Depression Heme/Lymph: No Bruising, No Bleeding, No Lymphadenopathy Endocrine : No Polyuria, No Polydipsia Yes all other systems are reviewed and are negative [facility] Past Medical History Attestation statement: The following information was validated with the patient. Source: old records reviewed Medical History ADD (attention deficit disorder) Anxiety Depression Surgical History Hx of breast augmentation Hx of tubal ligation Social History Social History Alcohol intake: current Alcohol intake frequency: does not drink Patient Tobacco Use Status: Never used Tobacco Advance Directives: No Advance Directives Information Provided: No Patient : No Physical Exam Vital Signs: Vital Signs: Last Vital Signs Temp 98.1 F 12/13/21 10:16 Pulse 87 12/13/21 13:04 Resp 18 12/13/21 10:16 BP 114/76 12/13/21 13:04 Pulse Ox 99 12/13/21 10:16 BMI result Body Mass Index 21.2 Vital signs have been reviewed as normal and appeared to be correct. Blood pressure normal.? Heart rate normal.? Respiration rate normal. Temperature normal.? Oxygen saturation normal. Appearance: Alert.?Oriented to person, place and time. No acute distress.?Normal affect. Eyes: Pupils equal, round and reactive to light.?EOMi. No nystagmus. ENT: Pharynx normal.?? Neck: Normal inspection.? Neck supple.?? CVS: Heart sounds normal. Normal heart rate and rhythm.? Pulses normal.?? Respiratory: No respiratory distress.? Lung sounds clear to auscultation bilaterally?? Abdomen: Soft and non-tender. Normoactive bowel sounds. Skin: Skin warm and dry.? Normal skin color.? Normal skin turgor.?? Extremities: No lower extremity edema.? No calf ttp? Neuro: Moves all extremities spontaneously. Sensation intact bilaterally. CN II- XII intact. No focal neuro deficits. Ambulates with normal steady gait. Course Course Course Narrative: Patient is a 26-year-old female being evaluated for headache, dizziness, chest pressure, anxiety. She is well appearing, hemodynamically stable. Neuro exam with no abnormal findings, no focal neuro deficits, no spontaneous or gaze evoked nystagmus, no ataxia, no diplopia, dysarthria, dysphagia, dysphonia, dysmetria. Will obtain CBC to evaluate for leukocytosis/ anemia, CMP to evaluate for abnormal electrolytes /abnormal renal function, EKG and troponin to evaluate for ischemia/ACS. Will assess orthostatic vital signs. Will treat with Tylenol and ibuprofen in addition to lorazepam for her anxiety. Of note patient was evaluated 2 months ago with similar symptoms, a slightly elevated D-dimer with CTA of the chest negative for PE. She was mildly anemic with hemoglobin 10.3 and 30.9 at that time. Reevaluation(s) Reevaluation #1: EKG reveals a normal sinus rhythm with nonspecific T-wave changes when compared with prior EKG obtained September 2021, no active chest pain, pressure, heaviness, or palpitations. HEART Score 0, unlikely to be ACS. CBC reveals no anemia, overall unremarkable, CMP and Troponin are normal. No orthostasis. Reports improvement her anxiety and denies any headache or dizziness at this time. She is well tolerating p.o. intake. Advised she may take Tylenol or ibuprofen as needed for her headaches. Spoke with care to who advised she would be contacted over the next couple of days to set up care with a therapist, there is a 4-8 with waiting period for establishing care with a psychiatric prescriber, and the y will e-mail a referral to [facility], as it does not appear as though an official referral was in their system already. I discussed this with patient, offered discharge with prescription for fluoxetine however she declined, stating only the clonazepam and lorazepam helpful for her. Discussed reasons that she should return back to the emergency department. Patient is agreeable with plan of care. Time: 13:51 [facility] - Headache Medical Records Attestation: I reviewed the patient's medical records. Lab Data Attestation: I reviewed the patient's lab results. Result diagrams: 12/13/21 13:12 12/13/21 13:12 Labs: Lab Results 12/13/21 12/13/21 12/13/21 Range/Units 13:03 13:12 13:12 WBC 9.3 (4.8-10.8) X10*3/uL RBC 5.16 D (4.20-5.50) X10*6/uL Hgb 13.2 D (12.0-16.0) g/dl Hct 42.2 D (37.0-47.0) % MCV 81.8 (80.0-98.0) fL MCH 25.6 L (27.0-33.0) pg MCHC 31.3 (31.0-35.0) g/dl RDW 13.2 (11.0-16.0) % Plt Count 333 (160-400) X10*3/uL MPV 10.2 (9.4-12.3) fL Immature Gran % (Auto) 0.2 (0.0-0.4) % Neut % (Auto) 62.7 (45-73) % Lymph % (Auto) 26.7 (20-40) % Crockett % (Auto) 8.7 (2-11) % Eos % (Auto) 1.3 (0-4) % Baso % (Auto) 0.4 (0-2) % Lymph # (Auto) 2.5 (1.2-4.9) X10*3/uL Crockett # (Auto) 0.8 (0.1-1.2) X10*3/uL Eos # (Auto) 0.1 (0.0-0.4) X10*3/uL Baso # (Auto) 0.0 (0.0-0.2) X10*3/uL Abs Immat Gran (auto) 0.02 (0.00-0.03) X10*3/uL Absolute Neuts (auto) 5.8 (2.0-8.3) x10*3/uL Absolute Nucleated RBC 0.000 (0.0-0.012) X10*3/uL Nucleated RBC % (auto) 0.0 (0.0-0.2) /100WBC Sodium 139 (135-145) mmol/L Potassium 4.0 (3.3-5.1) mmol/L Chloride 106 (96-108) mmol/L Carbon Dioxide 27 (22-29) mmol/L Anion Gap 10 L (12-20) BUN 10 (9-16) mg/dL Creatinine 0.72 (0.5-1.4) mg/dL Estim Creat Clear Calc 116.5 Estimated GFR > 60 Random Glucose 90 (60-115) mg/dL Calcium 10.0 (8.4-10.2) mg/dL Total Bilirubin 0.2 (0.0-1.0) mg/dL AST 18 (5-31) U/L ALT 23 (0-31) U/L Alkaline Phosphatase 59 (39-117) U/L Troponin I High Sens (<3.5-17.0) ng/L Total Protein 8.0 (6.5-8.0) g/dL Albumin 4.4 (3.5-5.0) g/dL Urine Test (NEGATIVE) COVID-19 ([facility]) Negative (Negative) COVID-19 Clin Com See Note 12/13/21 12/13/21 Range/Units 13:12 13:42 WBC (4.8-10.8) X10*3/uL RBC (4.20-5.50) X10*6/uL Hgb (12.0-16.0) g/dl Hct (37.0-47.0) % MCV (80.0-98.0) fL MCH (27.0-33.0) pg MCHC (31.0-35.0) g/dl RDW (11.0-16.0) % Plt Count (160-400) X10*3/uL MPV (9.4-12.3) fL Immature Gran % (Auto) (0.0-0.4) % Neut % (Auto) (45-73) % Lymph % (Auto) (20-40) % Crockett % (Auto) (2-11) % Eos % (Auto) (0-4) % Baso % (Auto) (0-2) % Lymph # (Auto) (1.2-4.9) X10*3/uL Crockett # (Auto) (0.1-1.2) X10*3/uL Eos # (Auto) (0.0-0.4) X10*3/uL Baso # (Auto) (0.0-0.2) X10*3/uL Abs Immat Gran (auto) (0.00-0.03) X10*3/uL Absolute Neuts (auto) (2.0-8.3) x10*3/uL Absolute Nucleated RBC (0.0-0.012) X10*3/uL Nucleated RBC % (auto) (0.0-0.2) /100WBC Sodium (135-145) mmol/L Potassium (3.3-5.1) mmol/L Chloride (96-108) mmol/L Carbon Dioxide (22-29) mmol/L Anion Gap (12-20) BUN (9-16) mg/dL Creatinine (0.5-1.4) mg/dL Estim Creat Clear Calc Estimated GFR Random Glucose (60-115) mg/dL Calcium (8.4-10.2) mg/dL Total Bilirubin (0.0-1.0) mg/dL AST (5-31) U/L ALT (0-31) U/L Alkaline Phosphatase (39-117) U/L Troponin I High Sens < 3.5 (<3.5-17.0) ng/L Total Protein (6.5-8.0) g/dL Albumin (3.5-5.0) g/dL Urine Test NEGATIVE (NEGATIVE) COVID-19 ([facility]) (Negative) COVID-19 Clin Com ECG Data Attestation: I personally reviewed and interpreted this ECG as follows: ECG interpretation date: 12/13/21 ECG interpretation time: 13:42 Prior ECG tracings: available for review Interpretation: Rate: 75 Rhythm:? Normal sinus rhythm Hadley:? Normal Normal P waves.? Normal SHEEBA.?? Normal QRS complex.?? ST T wave :??No ST elevation, no ST depression. T-wave inversion V1 and V2. prior studies:? September 2021 The study has been interpreted contemporaneously by me. Discharge Plan Discharge Clinical Impression: Headache, Anxiety Patient Disposition: Home, Self-Care Instructions: Acute Headache (ED), Anxiety (ED) Additional Instructions: For your headache You can take ibuprofen 200 mg, 3 tablets (600mg) every 6-8 hours as needed for pain, in addition to Tylenol 500 mg, 2 tablets (1,000mg) every 4-6 hours as needed for pain, but not to exceed 3 doses daily (3,000mg).? You will be contacted over the next couple of days to establish care with a therapist, and will be placed on a referral list to [facility] for a psychiatrist. You may return to the emergency department with any new or worsening symptoms or concerns. Prescriptions: No Action fluoxetine 20 mg capsule 20 mg PO DAILY 0RF Rx Instructions: 2 tabs daily clonazepam [Klonopin] 2 mg tablet 2 mg PO DAILY 0RF Rx Instructions: 1 tab tid lorazepam 1 mg tablet 1 mg PO DAILY PRN0RF spironolactone 25 mg tablet 25 mg PO DAILY 0RF Stand Alone Forms: Work/School Release
[2021-12-13 13:35] LABS: COVID-19 Test Negative (Negative)
[2021-12-13 13:43] LABS: Alanine Aminotransferase 23 U/L (0-31); Albumin Level 4.4 g/dL (3.5-5.0); Alkaline Phosphatase 59 U/L (39-117); Anion Gap 10 (12-20); Aspartate Amino Transferase 18 U/L (5-31); Bilirubin Total 0.2 mg/dL (0.0-1.0); Blood Urea Nitrogen 10 mg/dL (9-16); Carbon Dioxide 27 mmol/L (22-29); Chloride 106 mmol/L (96-108); Creatinine Clr Calc Pharmacy 116.5; Estimated Glomerular Filt Rate > 60; Glucose Random 90 mg/dL (60-115); Sodium 139 mmol/L (135-145); Troponin-I High Sensitivity < 3.5 ng/L (<3.5-17.0)
[2021-12-13 13:49] LABS: UPreg QC Valid YES
[2021-12-13 13:51] LABS: Urine Pregnancy NEGATIVE (NEGATIVE)
== END 2021-12-13 14:58 | disposition home or self-care (01) ==
PROVIDERS: Nurse Practitioner Family; Emergency Provider Emergency Medicine
DX: R07.89 Other chest pain (principal); F41.1 Generalized anxiety disorder; F43.0 Acute stress reaction; R51.9 Headache, unspecified; Z79.899 Other long term (current) drug therapy; Z20.822 Contact with and (suspected) exposure to COVID-19
CPT/HCPCS: 80053; 81025; 84484; 85025; 87635; 93005; 96360; 99284

== ENCOUNTER 2022-07-02 23:30 | Emergency (ER) | payer OTHER, SELFPAY ==
--- NOTE | 2022-07-02 23:43 | ED_ITS ---
HPI - Anxiety General Chief Complaint: Anxiety Stated Complaint: Dizziness for 2 hours Time Seen by Provider: 07/02/22 23:38 Source: patient Mode of arrival: ambulatory History of Present Illness HPI narrative: Patient with history of anxiety prior to arrival noticed spinning movement vertigo felt more anxious started having multiple symptoms with chest pressure numbness of the face. Patient did have a history of vertigo in the past. No headache no nausea no vomiting gait is stable Related Data Home Medications Medication Instructions Recorded Confirmed clonazepam 2 mg tablet (Klonopin) 2 mg PO DAILY 04/07/21 fluoxetine 20 mg capsule 20 mg PO DAILY 04/07/21 lorazepam 1 mg tablet 1 mg PO DAILY PRN 04/07/21 spironolactone 25 mg tablet 25 mg PO DAILY 04/07/21 Previous Rx's Medication Instructions Recorded meclizine 25 mg tablet 25 mg PO TID PRN dizziness #20 tabs 07/03/22 Allergies Allergy/AdvReac Type Severity Reaction Status Date / Time escitalopram [From LEXAPRO] Allergy Unknown hives Verified 07/02/22 23:44 Review of Systems Review of Systems: Yes all other systems are reviewed and are negative PMF Past Medical History Medical History ADD (attention deficit disorder) Anxiety Depression Surgical History Hx of breast augmentation Hx of tubal ligation Social History Social History Alcohol intake: current Alcohol intake frequency: does not drink Patient Tobacco Use Status: Never used Tobacco Advance Directives: No Advance Directives Information Provided: No Physical Exam Vital Signs: Vital Signs: Last Vital Signs Temp 98.2 F 07/03/22 00:02 Pulse 64 07/03/22 00:42 Resp 17 07/03/22 00:42 BP 120/70 07/03/22 00:42 Pulse Ox 96 07/03/22 00:42 O2 Del Method 07/03/22 00:42 BMI result Body Mass Index 24.7 Appearance: Alert. Oriented X3. No acute distress. Very anxious Eyes: PERRLA, No Nystagmus increased dizziness on turning the head to the right side ENT: Pharynx normal. Oral Mucosa moist Neck: Normal inspection. Neck supple. CVS: Normal heart rate and rhythm. Pulses normal. Respiratory: No respiratory distress. Equal air entry bilateral, no wheezing/rales/rhonchi Abdomen: Soft and nontender. Bowel sounds are present, no mass palpable, no CVA tenderness Skin: Skin warm and dry. Normal skin color. Normal skin turgor. Extremities: No lower extremity edema. No calf tenderness Neuro: Oriented X 3. No motor deficit. No sensory deficit.No cerebellar signs , cranial nerves II-XII intact MDM - Anxiety MDM Narrative Medical decision making narrative: Patient felt better after meclizine and Ativan will discharge patient home ECG Data Attestation: I personally reviewed and interpreted this ECG as follows: Interpretation: Some sinus rhythm heart rate 74 beats per minute normal intervals normal axis no acute ischemic changes Discharge Plan Discharge Clinical Impression: Acute anxiety, Benign paroxysmal positional vertigo Patient Disposition: Home, Self-Care Instructions: Benign Paroxysmal Positional Vertigo (ED), Anxiety (ED) Additional Instructions: Take medication for vertigo as prescribed\ Continue medication for anxiety follow-up with your PCP Prescriptions: New meclizine 25 mg tablet 25 mg PO TID PRN (Reason: dizziness) Qty: 20 0RF No Action fluoxetine 20 mg capsule 20 mg PO DAILY Rx Instructions: 2 tabs daily clonazepam [Klonopin] 2 mg tablet 2 mg PO DAILY Rx Instructions: 1 tab tid lorazepam 1 mg tablet 1 mg PO DAILY PRN spironolactone 25 mg tablet 25 mg PO DAILY Interventions: ED Discharge Assessment Last Done: 07/03/22 00:56 Discharge Date/Time: 07/03/22 01:02 Print Language: Citizen Of [place]
--- NOTE | 2022-07-02 23:43 | ECG_ITS ---
Test Reason : CHEST PAIN Blood Pressure : / mmHG Vent. Rate : 074 BPM Atrial Rate : 074 BPM P-R Int : 196 ms QRS Dur : 092 ms QT Int : 406 ms P-R-T Axes : 038 044 036 degrees QTc Int : 450 ms Normal sinus rhythm Normal ECG When compared with ECG of 13-DEC-2021 12:54, No significant change was found Referred By: Michel Montalvo Electronically Signed By:GRUPO WEBER MD
[2022-07-03 00:02] VITALS: BP 135/57; PULSE 84; PULSE 88; RESP 20; TEMP 36.8; O2SAT 100; O2SAT 99; BMI 24.7
[2022-07-03] MEDS: Meclizine HCl 25 MG TABLET PO (00:14)
[2022-07-03] MEDS: LORazepam 1 MG TABLET PO (00:14)
--- OUTSIDE RECORDS SUMMARY | 2022-07-03 00:32 | XMS_ITS | Continuity of Care Document ---
:1995 Author Organization [facility] Address [address] [place] [address] Drive [address] [place] [address]- Care Team Providers Name Role Phone Shannajamel Gladys Law DO Primary Care Physician Encounter [facility] [place] Date(s): 05/25/20 - 06/24/20 [facility] [address] [place] [address] Drive [address] [place] [address]- [facility] Allergies, Adverse Reactions, Alerts Substance Reaction Severity Status NKA Active Medications Colace sodium 100 mg oral capsule 100 mg, 1, capsule, By Mouth, 2 times a day, PRN, # 30 capsule, Refills 0, Tot. Refills 0, Maintenance, for constipation, 05/19/16 5:53:15, Print Requisition Start Date: 05/19/16 Status: Orderedibuprofen 600 mg oral tablet 600 mg, 1, tablet, By Mouth, Every 6 hours, # 40 tablet, Refills 0, Tot. Refills 0, Maintenance, 05/19/16 5:52:55, Print Requisition Start Date: 05/19/16 Status: OrderedZofran ODT 4 mg oral tablet, disintegrating 1 tablet = 4 mg, By Mouth, Every 8 hours, PRN Nausea & Vomiting, # 10 tablet, 0 Refills, Maintenance, 07/11/14 20:13:46, Tablet Start Date: 07/11/14 Status: Ordered
--- OUTSIDE RECORDS SUMMARY | 2022-07-03 00:32 | XMS_ITS | Continuity of Care Document ---
:1995 Author Organization [facility] Address [address] [place] [id number]- Care Team Providers Name Role Phone Gladys Fitch DO Primary Care Physician Encounter [facility] [place] Date(s): 01/20/22 - 01/20/[address] [address]- Encounter Diagnosis Benzodiazepine overdose (Final) - 01/20/22 Discharge Disposition: A-D/C Home Attending Physician: Ting Sanchez MD Admitting Physician: Ting Sanchez MD Referring Physician: Not on Staff, Referring MD Allergies, Adverse Reactions, Alerts Substance Reaction Severity Status Lexapro Active Medications Colace sodium 100 mg oral [...] 20:13:46, Tablet Start Date: 07/11/14 Status: Ordered Vital Signs Most recent to oldest 1 2 3 [Reference Range]: Height 160 cm 160 cm (01/20/22 2:16 PM) (01/20/22 11:51 AM) Oxygen Saturation [94-100 %] 100 % 100 % 100 % (01/20/22 2:00 PM) (01/20/22 1:00 PM) (01/20/22 11:00 AM) Pulse Rate [55-90 bpm] 80 bpm 77 bpm 76 bpm (01/20/22 2:00 PM) (01/20/22 1:00 PM) (01/20/22 11:51 AM) Blood Pressure [90-138/55-84 mm 98/58 mm Hg 115/77 mm Hg 128/77 mm Hg Hg] (01/20/22 2:00 PM) (01/20/22 1:00 PM) (01/20/22 11:51 AM) Respiratory Rate [16-30 br/min] 16 br/min 16 br/min 12 br/min (01/20/22 2:00 PM) (01/20/22 1:00 PM) *L* (01/20/22 11:51 AM ) Temperature [96.8-100.4 DegF] 98 DegF (01/20/22 11:51 AM) Mode of Delivery (Oxygen) Room air Room air Room a ir (01/20/22 2:00 PM) (01/20/22 1:00 PM) (01/20/22 11:00 AM) Blood pressure sites Arm, right Arm, right Arm, right (01/20/22 2:00 PM) (01/20/22 1:00 PM) (01/20/22 11:51 AM) Temperature Route Oral (01/20/22 11:51 AM)
--- OUTSIDE RECORDS SUMMARY | 2022-07-03 00:32 | XMS_ITS | Continuity of Care Document ---
:1995 Author Organization [facility] Address [address] [place] [address] Drive [address] [place] [address]- Care Team Providers Name Role Phone Shannajamel Gladys Law DO Primary Care Physician [place] [facility] [place] 03/18/20 - 04/17/20 [facility] [address] [place] [address] Drive [address] [place] [address]- [facility] Allergies, Adverse Reactions, Alerts Substance Reaction Severity [...]
[2022-07-03 00:42] VITALS: BP 120/70; PULSE 64; RESP 17; O2SAT 96
== END 2022-07-03 01:02 | disposition home or self-care (01) ==
PROVIDERS: Emergency Provider Internal Medicine
DX: H81.10 Benign paroxysmal vertigo, unspecified ear (principal); F41.9 Anxiety disorder, unspecified; Z79.899 Other long term (current) drug therapy
CPT/HCPCS: 93005; 99283; 99284

== ENCOUNTER 2022-09-22 23:01 | Emergency (ER) | payer OTHER, SELFPAY ==
[2022-09-22 23:32] VITALS: BP 119/65; PULSE 82; RESP 16; TEMP 36.6; O2SAT 100; BMI 25.3
[2022-09-22 23:53] LABS: MANUAL DIFF FLAG NO
[2022-09-22 23:54] LABS: Basophils Percent Auto 0.5 % (0-2); Eosinophils Absolute Auto 0.2 X10*3/uL (0.0-0.4); Eosinophils Percent Auto 1.5 % (0-4); Imm Gran Abs Auto 0.03 X10*3/uL (0.00-0.03); Imm Gran Pct Auto 0.3 % (0.0-0.4); Lymphocytes Absolute Auto 2.9 X10*3/uL (1.2-4.9); Lymphocytes Percent Auto 24.9 % (20-40); Mean Corpuscular HGB Conc 32.4 g/dl (31.0-35.0); Mean Corpuscular Hemoglobin 25.6 pg (27.0-33.0); Mean Corpuscular Volume 79.1 fL (80.0-98.0); Mean Platelet Volume 10.2 fL (9.4-12.3); Monocytes Absolute Auto 0.9 X10*3/uL (0.1-1.2); Monocytes Percent Auto 7.8 % (2-11); Neutrophils Absolute Auto 7.6 x10*3/uL (2.0-8.3); Platelet Count 312 X10*3/uL (160-400); Red Cell Distribution Width 13.1 % (11.0-16.0); White Blood Count 11.8 X10*3/uL (4.8-10.8)
[2022-09-22 23:55] LABS: Basophils Absolute Auto 0.1 X10*3/uL (0.0-0.2)
[2022-09-23 00:11] LABS: Alanine Aminotransferase 11 U/L (0-31); Albumin Level 4.2 g/dL (3.5-5.0); Alkaline Phosphatase 58 U/L (39-117); Anion Gap 12 (12-20); Aspartate Amino Transferase 13 U/L (5-31); Bilirubin Total 0.5 mg/dL (0.0-1.0); Blood Urea Nitrogen 12 mg/dL (9-16); Calcium 9.2 mg/dL (8.4-10.2); Carbon Dioxide 21 mmol/L (22-29); Chloride 108 mmol/L (96-108); Creatinine Clr Calc Pharmacy 110.6; Estimated Glomerular Filt Rate > 60; Glucose Random 93 mg/dL (60-115); Potassium 3.4 mmol/L (3.3-5.1); Sodium 138 mmol/L (135-145); Total Protein 7.1 g/dL (6.5-8.0)
[2022-09-23 00:16] VITALS: BP 127/69; PULSE 78; RESP 19; TEMP 36.6; O2SAT 98
[2022-09-23] MEDS: 0.9 % Sodium Chloride 1,000 ML 999 ML IV (00:18)
[2022-09-23 00:22] LABS: Appearance Urine Clear; Color Urine Yellow; Glucose Urine UA Negative (Negative); Leukocyte Esterase Urine Negative (Negative); Nitrite Urine Negative (Negative); PH 7.5 (5.0-9.0); Specific Gravity - Urine <= 1.005 (1.005-1.025); Urine Blood Negative (Negative); Urine Ketones Negative (Negative); Urine Protein Negative (Neg-Trace)
[2022-09-23 00:32] LABS: Influenza A PCR NEGATIVE (Negative); Influenza B PCR NEGATIVE (Negative); Resp Syncy Virus RNA Qual PCR NEGATIVE (Negative); SARS COV2 PCR INHOUSE NEGATIVE (Negative)
[2022-09-23 00:54] LABS: UPreg QC Valid YES; Urine Pregnancy NEGATIVE (NEGATIVE)
--- NOTE | 2022-09-23 00:56 | ED.GENADULT ---
HPI - General Adult General Chief complaint: General Medical Stated complaint: RON, extreme dizzy, N/V per EMS Time Seen by Provider: 09/22/22 23:49 Source: patient Mode of arrival: EMS History of Present Illness HPI narrative: 27-year-old female with history of anxiety/panic attacks who presents via EMS with acute onset of palpitations, headaches, tingling all over that she describes as body aches within the triage note and they are describes chills as well as congestion and cough and dizziness. Patient states that all of her symptoms started approximately 2200. Patient received Zofran and 250 mils an route by EMS. Patient denies any cigarette use, she denies any oral contraceptives, but does report that she recently traveled here from [place] Related Data Home Medications Medication Instructions Recorded Confirmed clonazepam 2 mg tablet (Klonopin) 2 mg PO DAILY 04/07/21 fluoxetine 20 mg capsule 20 mg PO DAILY 04/07/21 lorazepam 1 mg tablet 1 mg PO DAILY PRN 04/07/21 spironolactone 25 mg tablet 25 mg PO DAILY 04/07/21 Previous Rx's Medication Instructions Recorded meclizine 25 mg tablet 25 mg PO TID PRN dizziness #20 tabs 07/03/22 Allergies Allergy/AdvReac Type Severity Reaction Status Date / Time escitalopram [From LEXAPRO] Allergy Unknown hives Verified 07/02/22 23:44 Review of Systems Review of Systems: Pertinent positives and negatives as stated in HPI [facility] Past Medical History Source: nursing notes reviewed Medical History ADD (attention deficit disorder) Anxiety Depression Surgical History Hx of breast augmentation Hx of tubal ligation Social History Social History Alcohol intake: never Patient Tobacco Use Status: Never used Tobacco Smoked in Last 30 Days: No Use of substances other than those prescribed or required for medical reasons: No Advance Directives: No Advance Directives Information Provided: No Patient : No Physical Exam ED Vital Signs: Vital Signs - 24 hr 09/22/22 23:32 09/23/22 00:16 Temperature 97.8 F 97.8 F Pulse Rate 82 78 Respiratory Rate 16 19 Blood Pressure 119/65 127/69 Pulse Oximetry 100 98 Oxygen Delivery Method Room Air Room Air BMI result Body Mass Index 25.3 VITAL SIGNS: Reviewed. GENERAL: Well developed, well nourished, in no acute distress. HEAD: Normocephalic/atraumatic EYES: PERRLA, EOMI EARS: Ext canals without abnormality OROPHARYNX: no oral lesions noted, posterior pharynx clear LUNGS: Normal breath sounds. No adventitious sounds or accessory muscle use. SpO2<98> CARDIOVASCULAR: Regular rate and rhythm without noted murmurs, no JVD or lower extremity edema. ABDOMEN: Soft, non-tender, non-distended with bowel sounds. MUSCULOSKELETAL: No tenderness, deformities, or effusions noted on gross inspection. EXTREMITIES: No cyanosis, clubbing or edema. SKIN: Inspection of the skin reveals no rashes NEUROLOGIC: Alert and oriented x 4. Strength and sensation to light touch were grossly intact x 4. Medications Administered Discontinued Medications Generic Name Dose Route Start Last Admin Trade Name Freq PRN Reason Stop Dose Admin Sodium Chloride 1,000 mls @ 999 mls/hr 09/22/22 23:45 09/23/22 01:31 Ns IV 09/23/22 00:45 Infused .Q1H1M JAILYN Infusion Medical Decision Making Medical Decision Making [facility] Narrative: 27-year-old female with palpitations, tingling and dizziness very suspicious for panic attack but will obtain basic lab work, urinalysis/urine /serology I have reviewed and interpreted the results as follows: There is no evidence of infection and the leukocytosis that is present is associated with patient's stress response from nausea/vomiting, anemia is noted in appears to be consistent with prior results. No electrolyte or renal dysfunction noted and viral testing is negative. D-dimer <150, patient received IV fluids as well as antiemetics and will be discharged home with presumptive panic attack. Differential Diagnosis Differential Diagnoses: The differential diagnosis associated with the presentation includes I, anemia, viral illness Lab Data [facility] Lab Attestation statement: I reviewed the patient's lab results. Please see the discussion above 09/22/22 23:44 09/22/22 23:44 Labs: Lab Results 09/22/22 09/22/22 09/22/22 Range/Units 23:44 23:44 23:44 WBC 11.8 H (4.8-10.8) X10*3/uL RBC 4.30 (4.20-5.50) X10*6/uL Hgb 11.0 L (12.0-16.0) g/dl Hct 34.0 L (37.0-47.0) % MCV 79.1 L (80.0-98.0) fL MCH 25.6 L (27.0-33.0) pg MCHC 32.4 (31.0-35.0) g/dl RDW 13.1 (11.0-16.0) % Plt Count 312 (160-400) X10*3/uL MPV 10.2 (9.4-12.3) fL Immature Gran % (Auto) 0.3 (0.0-0.4) % Neut % (Auto) 65.0 (45-73) % Lymph % (Auto) 24.9 (20-40) % Delta % (Auto) 7.8 (2-11) % Eos % (Auto) 1.5 (0-4) % Baso % (Auto) 0.5 (0-2) % Lymph # (Auto) 2.9 (1.2-4.9) X10*3/uL Delta # (Auto) 0.9 (0.1-1.2) X10*3/uL Eos # (Auto) 0.2 (0.0-0.4) X10*3/uL Baso # (Auto) 0.1 (0.0-0.2) X10*3/uL Abs Immat Gran (auto) 0.03 (0.00-0.03) X10*3/uL Absolute Neuts (auto) 7.6 (2.0-8.3) x10*3/uL Absolute Nucleated RBC 0.000 (0.0-0.012) X10*3/uL Nucleated RBC % (auto) 0.0 (0.0-0.2) /100WBC D-Dimer High Sensitivty NG/ML Sodium 138 (135-145) mmol/L Potassium 3.4 (3.3-5.1) mmol/L Chloride 108 (96-108) mmol/L Carbon Dioxide 21 L (22-29) mmol/L Anion Gap 12 (12-20) BUN 12 (9-16) mg/dL Creatinine 0.68 (0.5-1.4) mg/dL Estim Creat Clear Calc 110.6 Estimated GFR > 60 Random Glucose 93 (60-115) mg/dL Calcium 9.2 D (8.4-10.2) mg/dL Total Bilirubin 0.5 (0.0-1.0) mg/dL AST 13 (5-31) U/L ALT 11 (0-31) U/L Alkaline Phosphatase 58 (39-117) U/L Total Protein 7.1 (6.5-8.0) g/dL Albumin 4.2 (3.5-5.0) g/dL Urine Color Urine Appearance Urine pH (5.0-9.0) Ur Specific [place] (1.005-1.025) Urine Protein (Neg-Trace) mg/dL Urine Glucose (UA) (Negative) mg/dL Urine Ketones (Negative) mg/dL Urine Blood (Negative) Urine Nitrite (Negative) Ur Leukocyte Esterase (Negative) Urine Test (NEGATIVE) Influenza Type A (PCR) NEGATIVE (Negative) Influenza Type B (PCR) NEGATIVE (Negative) RSV RNA Qual (PCR) NEGATIVE (Negative) SARS-CoV-2 RNA (RT-PCR) NEGATIVE (Negative) 09/23/22 09/23/22 09/23/22 Range/Units 00:14 00:14 01:11 WBC (4.8-10.8) X10*3/uL RBC (4.20-5.50) X10*6/uL Hgb (12.0-16.0) g/dl Hct (37.0-47.0) % MCV (80.0-98.0) fL MCH (27.0-33.0) pg MCHC (31.0-35.0) g/dl RDW (11.0-16.0) % Plt Count (160-400) X10*3/uL MPV (9.4-12.3) fL Immature Gran % (Auto) (0.0-0.4) % Neut % (Auto) (45-73) % Lymph % (Auto) (20-40) % Delta % (Auto) (2-11) % Eos % (Auto) (0-4) % Baso % (Auto) (0-2) % Lymph # (Auto) (1.2-4.9) X10*3/uL Delta # (Auto) (0.1-1.2) X10*3/uL Eos # (Auto) (0.0-0.4) X10*3/uL Baso # (Auto) (0.0-0.2) X10*3/uL Abs Immat Gran (auto) (0.00-0.03) X10*3/uL Absolute Neuts (auto) (2.0-8.3) x10*3/uL Absolute Nucleated RBC (0.0-0.012) X10*3/uL Nucleated RBC % (auto) (0.0-0.2) /100WBC D-Dimer High Sensitivty < 150 NG/ML Sodium (135-145) mmol/L Potassium (3.3-5.1) mmol/L Chloride (96-108) mmol/L Carbon Dioxide (22-29) mmol/L Anion Gap (12-20) BUN (9-16) mg/dL Creatinine (0.5-1.4) mg/dL Estim Creat Clear Calc Estimated GFR Random Glucose (60-115) mg/dL Calcium (8.4-10.2) mg/dL Total Bilirubin (0.0-1.0) mg/dL AST (5-31) U/L ALT (0-31) U/L Alkaline Phosphatase (39-117) U/L Total Protein (6.5-8.0) g/dL Albumin (3.5-5.0) g/dL Urine Color Yellow Urine Appearance Clear Urine pH 7.5 (5.0-9.0) Ur Specific [place] <= 1.005 (1.005-1.025) Urine Protein Negative (Neg-Trace) mg/dL Urine Glucose (UA) Negative (Negative) mg/dL Urine Ketones Negative (Negative) mg/dL Urine Blood Negative (Negative) Urine Nitrite Negative (Negative) Ur Leukocyte Esterase Negative (Negative) Urine Test NEGATIVE (NEGATIVE) Influenza Type A (PCR) (Negative) Influenza Type B (PCR) (Negative) RSV RNA Qual (PCR) (Negative) SARS-CoV-2 RNA (RT-PCR) (Negative) Independent Interpretation I performed an independent interpretation of an: EKG Interpretation: Sinus rhythm with first-degree AV block, HR-78, no STEMI, [place]/QRS/QTC is within normal limits. External Record Review External record reviewed: Outpatient record and Prior outpatient labs Chronic Conditions Patient?s care impacted by: Other Anxiety Discharge Plan Discharge Clinical Impression: Anxiety, Panic attack Patient Disposition: Home, Self-Care Instructions: Panic Disorder (ED), Anxiety (ED) Additional Instructions: 1. Resume all home medications as prescribed. 2. I have given you a prescription for antinausea medication. 3. Please follow-up with your primary care provider Sunday. Return to the ER for worsening symptoms. Prescriptions: No Action meclizine 25 mg tablet 25 mg PO TID PRN (Reason: dizziness) Qty: 20 0RF fluoxetine 20 mg capsule 20 mg PO DAILY Rx Instructions: 2 tabs daily clonazepam [Klonopin] 2 mg tablet 2 mg PO DAILY Rx Instructions: 1 tab tid lorazepam 1 mg tablet 1 mg PO DAILY PRN spironolactone 25 mg tablet 25 mg PO DAILY
--- NOTE | 2022-09-23 00:59 | ECG_ITS ---
Test Reason : chest pain Blood Pressure : / mmHG Vent. Rate : 078 BPM Atrial Rate : 078 BPM P-R Int : 210 ms QRS Dur : 086 ms QT Int : 408 ms P-R-T Axes : 037 041 030 degrees QTc Int : 465 ms Sinus rhythm with 1st degree A-V block Nonspecific ST and T wave abnormality Borderline ECG When compared with ECG of 02-JUL-2022 23:45, No significant change was found Referred By: Sonya Green Electronically Signed By:ALEXANDRE CONNOR
[2022-09-23 01:32] LABS: D Dimer High Sensitivity < 150 NG/ML
[2022-09-23] MEDS: Ibuprofen 400 MG TABLET PO (01:54)
[2022-09-23] MEDS: Acetaminophen 325 MG TABLET 975 MG PO (01:55)
== END 2022-09-23 02:10 | disposition home or self-care (01) ==
PROVIDERS: Emergency Provider Student in an Organized Health Care Education/Training Program
DX: R07.89 Other chest pain (principal); R42 Dizziness and giddiness; Z20.828 Contact with and (suspected) exposure to other viral communicable diseases; Z20.822 Contact with and (suspected) exposure to COVID-19; Z79.899 Other long term (current) drug therapy
CPT/HCPCS: 0241U; 36415; 80053; 81003; 81025; 85025; 85379; 93005; 96360; 99284; 99285

== ENCOUNTER 2022-11-09 05:18 | Emergency (ER) | payer OTHER, SELFPAY ==
--- NOTE | ~2022-11-09 | CT_ITS ---
EXAMINATION: CT ABDOMEN AND PELVIS WITH CONTRAST CLINICAL INFORMATION: Severe periumbilical pain COMPARISON: None TECHNIQUE: Multidetector volumetric images were obtained from the superior aspect of the liver through the pubic symphysis following administration 85 mL of Omnipaque 350 intravenous contrast. Sagittal and coronal reformatted images were obtained on the technologist's workstation. Oral contrast: No This CT examination was performed using dose optimization techniques as appropriate, variously including the following: *Automated exposure control *Adjustment of mA and/or kV according to patient size (this includes techniques or standardized protocols for targeted exams where dose is matched to indication/reason for exam; i.e. extremities or head) *Use of iterative reconstruction technique DLP: 412 mGy-cm FINDINGS: LUNG BASES: The visualized lung bases are unremarkable. A right breast prosthesis is partially visualized. LIVER, GALLBLADDER, AND BILIARY TREE: The liver is mildly enlarged at 17.3 cm with normal shape and attenuation. No focal hepatic lesion or biliary ductal dilatation is present. The gallbladder is unremarkable with no evidence of radiopaque gallstones, gallbladder wall thickening, or obvious pericholecystic inflammatory changes. PANCREAS: Unremarkable. SPLEEN: Unremarkable. ADRENAL GLANDS: Unremarkable. KIDNEYS AND URETERS: The kidneys are normal in size, shape, and attenuation. There is a 2 mm punctate nonobstructing calculus seen at the lower pole of the right kidney (2:33). No other calculi are seen. There is a 6 mm hypoattenuating mass in the mid right kidney which measures 24 Hounsfield units. This is not seen on the prior CT scan on prior ultrasound exams. I suspect that this represents a Bosniak class II cyst, but a targeted ultrasound is recommended for further evaluation to prove this. No hydronephrosis or hydroureter seen. No perinephric stranding. BLADDER: Unremarkable. GASTROINTESTINAL TRACT: The small and large bowel are unremarkable. The appendix is unremarkable. ABDOMINAL WALL: No significant hernia is appreciated. LYMPH NODES: No retroperitoneal lymphadenopathy. VASCULAR: Unremarkable. PELVIC VISCERA: An anteverted uterus is present. A crenated right ovarian cyst is present, possibly a corpus luteal cyst. No free pelvic fluid is seen. OSSEOUS STRUCTURES: Unremarkable. CT/CT abdomen pelvis w IV con IMPRESSION: 1. A cause for the patient's periumbilical pain has not been found. The appendix is normal 2. Incidental note made of mild hepatomegaly, nonobstructing 2 mm right renal calculus and probable Bosniak class II right renal cyst. A targeted renal ultrasound is recommended for further evaluation to prove this. Fleischner guidelines were followed.
[2022-11-09 05:55] VITALS: BP 112/67; PULSE 88; RESP 16; TEMP 36.6; O2SAT 97; BMI 24.7
[2022-11-09 06:31] LABS: MANUAL DIFF FLAG NO
[2022-11-09 06:32] LABS: Appearance Urine Clear; Color Urine Yellow; Glucose Urine UA Negative (Negative); Leukocyte Esterase Urine Negative (Negative); Nitrite Urine Negative (Negative); PH 6.5 (5.0-9.0); UMIC TRIGGER UACC YES; Urine Blood Small (1+) (Negative); Urine Ketones Negative (Negative); Urine Protein Negative (Neg-Trace)
[2022-11-09 06:35] LABS: Basophils Percent Auto 0.3 % (0-2); Eosinophils Absolute Auto 0.1 X10*3/uL (0.0-0.4); Eosinophils Percent Auto 1.3 % (0-4); Hematocrit 40.4 % (37.0-47.0); Hemoglobin 12.8 g/dl (12.0-16.0); Imm Gran Abs Auto 0.06 X10*3/uL (0.00-0.03); Imm Gran Pct Auto 0.6 % (0.0-0.4); Lymphocytes Absolute Auto 1.4 X10*3/uL (1.2-4.9); Lymphocytes Percent Auto 14.3 % (20-40); Mean Corpuscular HGB Conc 31.7 g/dl (31.0-35.0); Mean Corpuscular Hemoglobin 25.5 pg (27.0-33.0); Mean Corpuscular Volume 80.6 fL (80.0-98.0); Mean Platelet Volume 9.6 fL (9.4-12.3); Monocytes Absolute Auto 1.3 X10*3/uL (0.1-1.2); Monocytes Percent Auto 12.8 % (2-11); Neutrophils Absolute Auto 7.1 x10*3/uL (2.0-8.3); Neutrophils Percent Auto 70.7 % (45-73); Platelet Count 286 X10*3/uL (160-400); Red Blood Count 5.01 X10*6/uL (4.20-5.50); Red Cell Distribution Width 13.2 % (11.0-16.0)
[2022-11-09 06:36] LABS: UPreg QC Valid YES; Urine Pregnancy NEGATIVE (NEGATIVE)
[2022-11-09 06:41] VITALS: TEMP 36.8
[2022-11-09 06:47] LABS: Alanine Aminotransferase 17 U/L (0-31); Albumin Level 4.2 g/dL (3.5-5.0); Alkaline Phosphatase 56 U/L (39-117); Anion Gap 11 (12-20); Aspartate Amino Transferase 13 U/L (5-31); Bilirubin Direct < 0.2 mg/dL (0.0-0.5); Bilirubin Total 0.2 mg/dL (0.0-1.0); Blood Urea Nitrogen 11 mg/dL (9-16); Calcium 9.3 mg/dL (8.4-10.2); Carbon Dioxide 26 mmol/L (22-29); Chloride 108 mmol/L (96-108); Estimated Glomerular Filt Rate > 60; Glucose Random 95 mg/dL (60-115); Potassium 4.3 mmol/L (3.3-5.1); Sodium 141 mmol/L (135-145); Total Protein 7.1 g/dL (6.5-8.0)
[2022-11-09 06:48] LABS: Bacteria Urine None Seen (None Seen); Hyaline Casts Urine 0-2 /LPF (0-2); RBC Urine 0-2 /HPF (0-2); Squamous Epithelial Cell Urine 0-2 /HPF (0-2); WBC Urine 0-5 /HPF (0-5)
--- NOTE | 2022-11-09 06:49 | PC.NURSE ---
Pt is experiencing LLQ pain 7/10 x 4 days. Pt was inserted IV 20g LAc. Pt reports, she is constipated x 3 days, feeling bloated and provoking vomiting due to feeling bloated. Pt abd is soft and tender during palpation. Labs has been drawn.
--- NOTE | 2022-11-09 06:55 | ED.ABDPAIN ---
HPI - Abdominal Pain General Chief Complaint: Abdominal Pain Stated Complaint: stomach pain, n/v Time Seen by Provider: 11/09/22 06:38 Source: patient Mode of arrival: ambulatory Limitations: no limitations History of Present Illness HPI narrative: 27-year-old female with history of anxiety presents with abdominal pain. The abdominal pain started 4 days ago. She describes a constant. The pain is a 7/10. It is periumbilical to left side nature. Pain does not radiate. It is associated with nausea and bloating but no diarrhea, constipation, vomiting. She did try to induce emesis without relief of symptoms. She did try Tylenol additionally without relief. Patient denies any previous history of these symptoms. She does report a history of a tummy tuck but no other previous surgeries. She denies any fevers, chills, sweats, urinary frequency/urgency/dysuria/hematuria patient denies any vaginal bleeding or discharge. Related Data Home Medications Medication Instructions Recorded Confirmed clonazepam 2 mg tablet (Klonopin) 2 mg PO DAILY 04/07/21 fluoxetine 20 mg capsule 20 mg PO DAILY 04/07/21 lorazepam 1 mg tablet 1 mg PO DAILY PRN 04/07/21 spironolactone 25 mg tablet 25 mg PO DAILY 04/07/21 Previous Rx's Medication Instructions Recorded meclizine 25 mg tablet 25 mg PO TID PRN dizziness #20 tabs 07/03/22 dicyclomine 20 mg tablet 20 mg PO TID PRN abdominal 11/09/22 discomfort #14 tabs Allergies Allergy/AdvReac Type Severity Reaction Status Date / Time escitalopram [From LEXAPRO] Allergy Unknown hives Verified 07/02/22 23:44 Review of Systems Review of Systems CONSTITUTIONAL: Denies weight loss, fever and chills. HEENT: Denies changes in vision and hearing. RESPIRATORY: Denies SOB and cough. CV: Denies palpitations no CP. GI: + abdominal pain, nausea, no vomiting and diarrhea. : Denies dysuria and urinary frequency. MSK: Denies myalgia and joint pain. SKIN: Denies rash and pruritus. NEUROLOGICAL: Denies headache and syncope. PSYCHIATRIC: Denies recent changes in mood. Denies anxiety and depression. All other ROS are negative unless in HPI Yes all other systems are reviewed and are negative [facility] Past Medical History Medical History ADD (attention deficit disorder) Anxiety Depression Surgical History Hx of breast augmentation Hx of tubal ligation Social History Social History Alcohol intake: never Patient Tobacco Use Status: Never used Tobacco Smoked in Last 30 Days: No Use of substances other than those prescribed or required for medical reasons: No Advance Directives: No Patient : No Physical Exam ED Vital Signs: Vital Signs - 24 hr 11/09/22 05:55 11/09/22 06:41 11/09/22 09:24 Temperature 97.8 F 98.3 F 98.6 F Pulse Rate 88 85 Respiratory Rate 16 17 Blood Pressure 112/67 98/60 Pulse Oximetry 97 99 Oxygen Delivery Method Room Air Room Air BMI result Body Mass Index 24.7 GEN: Well developed, no acute distress, alert, oriented HEENT: Normocephalic, atraumatic, normal external ears, nose appears normal, no oropharyngeal edema or exudates Eyes: Normal to appearance Neck: Supple, no lymphadenopathy Respiratory: Talks in complete sentences, no respiratory distress, clear to auscultation bilaterally Cardiovascular: Regular rate and rhythm, no murmurs rubs or gallops Abdomen: Soft, periumbilical tenderness, mild distention, positive guarding, no rebound, negative Starks sign, negative McBurney's point tenderness Back: No CVA tenderness Extremities: No clubbing cyanosis or edema Neurologic: No focal neurologic deficits, cranial nerves 2-12 intact, strength is 5/5 bilaterally, gait normal Skin: No rash Course Course Course Narrative: 27-year-old female with no major medical problems presents to the emergency department 4 days of persistent periumbilical abdominal pain. The pain is described as moderate to severe. Re-examination revealed periumbilical tenderness with guarding but no rebound. There is no CVA tenderness. She has had a tummy tuck but no intra-abdominal surgeries. Patient denies any vaginal bleeding or discharge. She denies being . At this time, the differential diagnosis could include the following: Appendicitis, diverticulitis, colitis, SBO, ileus, renal colic stone, pyelonephritis, UTI. Plan will include CT scan, laboratory analysis, urinalysis, urine . Patient received analgesics. Reevaluation(s) Reevaluation #1: I reviewed all results with the patient. This time there is no definite cause of her symptoms. We did discuss fatty liver and renal cysts which I have recommended follow-up with her primary care provider with an ultrasound. I digitally discussed the presence of a kidney stone which is not causing any acute issues. We will start her on Bentyl to take as needed and she can take Tylenol and ibuprofen for additional pain relief. She will return for any uncontrolled pain. She will follow up with her regular provider next week for re-evaluation. Time: 09:59 Medical Decision Making Medical Decision Making MDM Narrative: 27-year-old female presents with abdominal pain. There has been no vomiting, diarrhea, constipation. No urinary symptoms. Concerning finding includes the guarding on examination. Broad differential diagnosis is being considered. Patient received analgesia, IV fluids, CT scan, laboratory analysis. Patient will have frequent re-evaluations. Differential Diagnosis Differential Diagnoses: The differential diagnosis associated with the presentation includes (IBS, IBD, colitis, diverticulitis, appendicitis, ovarian cyst) Abdominal pain NOS Admission/Observation Consideration of admission/observation: Escalation of care including admission/observation considered Lab Data MDM Lab Attestation statement: I reviewed the patient's lab results. 11/09/22 06:24 11/09/22 06:24 Labs: Lab Results 11/09/22 11/09/22 11/09/22 Range/Units 06:12 06:12 06:24 WBC 10.0 (4.8-10.8) X10*3/uL RBC 5.01 (4.20-5.50) X10*6/uL Hgb 12.8 (12.0-16.0) g/dl Hct 40.4 (37.0-47.0) % MCV 80.6 (80.0-98.0) fL MCH 25.5 L (27.0-33.0) pg MCHC 31.7 (31.0-35.0) g/dl RDW 13.2 (11.0-16.0) % Plt Count 286 (160-400) X10*3/uL MPV 9.6 (9.4-12.3) fL Immature Gran % (Auto) 0.6 H (0.0-0.4) % Neut % (Auto) 70.7 (45-73) % Lymph % (Auto) 14.3 L (20-40) % [place] % (Auto) 12.8 H (2-11) % Eos % (Auto) 1.3 (0-4) % Baso % (Auto) 0.3 (0-2) % Lymph # (Auto) 1.4 (1.2-4.9) X10*3/uL [place] # (Auto) 1.3 H (0.1-1.2) X10*3/uL Eos # (Auto) 0.1 (0.0-0.4) X10*3/uL Baso # (Auto) 0.0 (0.0-0.2) X10*3/uL Abs Immat Gran (auto) 0.06 H (0.00-0.03) X10*3/uL Absolute Neuts (auto) 7.1 (2.0-8.3) x10*3/uL Absolute Nucleated RBC 0.000 (0.0-0.012) X10*3/uL Nucleated RBC % (auto) 0.0 (0.0-0.2) /100WBC Sodium (135-145) mmol/L Potassium (3.3-5.1) mmol/L Chloride (96-108) mmol/L Carbon Dioxide (22-29) mmol/L Anion Gap (12-20) BUN (9-16) mg/dL Creatinine (0.5-1.4) mg/dL Estim Creat Clear Calc Estimated GFR Random Glucose (60-115) mg/dL Calcium (8.4-10.2) mg/dL Total Bilirubin (0.0-1.0) mg/dL Direct Bilirubin (0.0-0.5) mg/dL AST (5-31) U/L ALT (0-31) U/L Alkaline Phosphatase (39-117) U/L Total Protein (6.5-8.0) g/dL Albumin (3.5-5.0) g/dL Urine Color Yellow Urine Appearance Clear Urine pH 6.5 (5.0-9.0) Ur Specific [place] 1.010 (1.005-1.025) Urine Protein Negative (Neg-Trace) mg/dL Urine Glucose (UA) Negative (Negative) mg/dL Urine Ketones Negative (Negative) mg/dL Urine Blood Small (1+) H (Negative) Urine Nitrite Negative (Negative) Ur Leukocyte Esterase Negative (Negative) Urine RBC 0-2 (0-2) /HPF Urine WBC 0-5 (0-5) /HPF Ur Squamous Epith Cells 0-2 (0-2) /HPF Urine Bacteria None Seen (None Seen) Hyaline Casts 0-2 (0-2) /LPF Urine Test NEGATIVE (NEGATIVE) 11/09/22 Range/Units 06:24 WBC (4.8-10.8) X10*3/uL RBC (4.20-5.50) X10*6/uL Hgb (12.0-16.0) g/dl Hct (37.0-47.0) % MCV (80.0-98.0) fL MCH (27.0-33.0) pg MCHC (31.0-35.0) g/dl RDW (11.0-16.0) % Plt Count (160-400) X10*3/uL MPV (9.4-12.3) fL Immature Gran % (Auto) (0.0-0.4) % Neut % (Auto) (45-73) % Lymph % (Auto) (20-40) % [place] % (Auto) (2-11) % Eos % (Auto) (0-4) % Baso % (Auto) (0-2) % Lymph # (Auto) (1.2-4.9) X10*3/uL [place] # (Auto) (0.1-1.2) X10*3/uL Eos # (Auto) (0.0-0.4) X10*3/uL Baso # (Auto) (0.0-0.2) X10*3/uL Abs Immat Gran (auto) (0.00-0.03) X10*3/uL Absolute Neuts (auto) (2.0-8.3) x10*3/uL Absolute Nucleated RBC (0.0-0.012) X10*3/uL Nucleated RBC % (auto) (0.0-0.2) /100WBC Sodium 141 (135-145) mmol/L Potassium 4.3 D (3.3-5.1) mmol/L Chloride 108 (96-108) mmol/L Carbon Dioxide 26 (22-29) mmol/L Anion Gap 11 L (12-20) BUN 11 (9-16) mg/dL Creatinine 0.73 (0.5-1.4) mg/dL Estim Creat Clear Calc 102.0 Estimated GFR > 60 Random Glucose 95 (60-115) mg/dL Calcium 9.3 (8.4-10.2) mg/dL Total Bilirubin 0.2 (0.0-1.0) mg/dL Direct Bilirubin < 0.2 (0.0-0.5) mg/dL AST 13 (5-31) U/L ALT 17 (0-31) U/L Alkaline Phosphatase 56 (39-117) U/L Total Protein 7.1 (6.5-8.0) g/dL Albumin 4.2 (3.5-5.0) g/dL Urine Color Urine Appearance Urine pH (5.0-9.0) Ur Specific [place] (1.005-1.025) Urine Protein (Neg-Trace) mg/dL Urine Glucose (UA) (Negative) mg/dL Urine Ketones (Negative) mg/dL Urine Blood (Negative) Urine Nitrite (Negative) Ur Leukocyte Esterase (Negative) Urine RBC (0-2) /HPF Urine WBC (0-5) /HPF Ur Squamous Epith Cells (0-2) /HPF Urine Bacteria (None Seen) Hyaline Casts (0-2) /LPF Urine Test (NEGATIVE) Independent Interpretation I performed an independent interpretation of an: CT Scan (No acute intra-abdominal process) Radiology Impression Discussion of test interpretation with radiology: I have reviewed the radiologist's reading. (IMPRESSION: 1. A cause for the patient's periumbilical pain has not been found. The appendix is normal 2. Incidental note made of mild hepatomegaly, nonobstructing 2 mm right renal calculus and probable Bosniak class II right renal cyst. A targeted renal ultrasound is recommended for further evalu) External Record Review External record reviewed: Office record Anxiety Tests considered The following testing was considered but not selected: Ultrasound Prescription Management I considered prescription management with: Pain Medication Medications Administered Discontinued Medications Generic Name Dose Route Start Last Admin Trade Name Freq PRN Reason Stop Dose Admin Sodium Chloride 1,000 mls @ 999 mls/hr 11/09/22 07:00 11/09/22 09:29 Ns IV 11/09/22 08:00 Infused .Q1H1M JAILYN Infusion Iohexol 85 ml 11/09/22 08:21 11/09/22 08:22 Iohexol 350 Mg/Ml 100 Ml Infus..Btl IV 11/09/22 08:22 85 ml ONCE ONE Administration Ketorolac Tromethamine 15 mg 11/09/22 07:00 11/09/22 07:34 Ketorolac Tromethamine 15 Mg/Ml Vial IVPUSH 11/09/22 07:01 15 mg ONCE ONE Administration Discharge Plan Discharge Clinical Impression: Abdominal pain, Kidney stone, Renal cyst, Hepatomegaly Patient Disposition: Home, Self-Care Instructions: Kidney Stones (ED), Abdominal Pain (ED), Kidney Cyst (ED) Additional Instructions: Your evaluated for abdominal pain. The etiology of her symptoms is not clearly elucidated. Incidentally noted to have a kidney stone which is not causing acute issue. We also found to have a kidney cyst and enlarged liver. These can be followed up as an outpatient with ultrasound. I will prescribe you dicyclomine for your abdominal pain. Defer additional pain relief he may take Tylenol and ibuprofen. Prescriptions: New dicyclomine 20 mg tablet 20 mg PO TID PRN (Reason: abdominal discomfort) Qty: 14 0RF No Action meclizine 25 mg tablet 25 mg PO TID PRN (Reason: dizziness) Qty: 20 0RF fluoxetine 20 mg capsule 20 mg PO DAILY Rx Instructions: 2 tabs daily clonazepam [Klonopin] 2 mg tablet 2 mg PO DAILY Rx Instructions: 1 tab tid lorazepam 1 mg tablet 1 mg PO DAILY PRN spironolactone 25 mg tablet 25 mg PO DAILY Referrals: Brett Lanier III, MD [Primary Care Provider] -
[2022-11-09] MEDS: 0.9 % Sodium Chloride 1,000 ML 999 ML IV (07:34)
[2022-11-09] MEDS: Ketorolac Tromethamine 15 MG/ML VIAL IVPUSH (07:34)
--- NOTE | 2022-11-09 07:58 | PC.NURSE ---
Medicated for pain per the MAR, fluids infusing. Awaiting CT scan.
[2022-11-09] MEDS: iohexoL 350 MG/ML 100 ML INFUS..BTL 85 ML IV (08:22)
[2022-11-09 09:24] VITALS: BP 98/60; PULSE 85; RESP 17; TEMP 37; O2SAT 99
== END 2022-11-09 10:11 | disposition home or self-care (01) ==
PROVIDERS: Emergency Provider Emergency Medicine; PCP Internal Medicine
DX: R10.33 Periumbilical pain (principal); N20.0 Calculus of kidney; N28.1 Cyst of kidney, acquired; N83.201 Unspecified ovarian cyst, right side; R16.0 Hepatomegaly, not elsewhere classified; Z79.899 Other long term (current) drug therapy
CPT/HCPCS: 36415; 74177; 80048; 80076; 81001; 81025; 85025; 96361; 96374; 99284; 99285; J1885; Q9967